=== PATIENT | female | born 1955 | race Caucasian/White ===

== ENCOUNTER 2017-05-14 07:51 | Day surgery (SDC) | payer OTHER ==
[2017-05-14] MEDS ORDERED: MIDAZOLAM INJ 2 MG/2 ML VIAL (J2250) As Ordered (08:59)
[2017-05-14] MEDS ORDERED: fentaNYL 100 MCG/2 ML INJECTION (J3010) As Ordered (08:59)
[2017-05-14] MEDS: TROPICAMIDE 1% OPHTH SOLN 2ML OD (09:04)
[2017-05-14] MEDS: PHENYLEPHRINE 2.5% OPHTH SOL 2ML OD (09:04)
[2017-05-14] MEDS: PROPARACAINE 0.5% OPHTH SOL 15ML OD (09:04)
[2017-05-14] MEDS: OFLOXACIN 0.3 % (OCUFLOX) OPTH SOL 5ML OD (09:04)
[2017-05-14] MEDS ORDERED: METOCLOPRAMIDE INJ 10MG/2ML VIAL (J2765) As Ordered (10:18)
[2017-05-14] MEDS ORDERED: ONDANSETRON 4MG/2ML VIAL (J2405) As Ordered (10:20)
[2017-05-14] MEDS: DUOVISC (0.50ML VISCOAT/0.55ML PROVISC) OPHTH KIT As Ordered (10:22)
[2017-05-14] MEDS: ACETYLCHOLINE OPHTH SOLN 1% 2ML (MIOCHOL-E) As Ordered (10:22)
[2017-05-14] MEDS: POVIDONE-IODINE 5% OPHTH PREP SOL 30ML As Ordered (10:22)
[2017-05-14] MEDS: LIDOCAINE 0.75%/EPINEPHRINE 0.025% IN BSS 1ML SYR INTRACAMERAL (OR ONLY) As Ordered (10:22)
[2017-05-14] MEDS: BALANCED SALT IRRIGATION SOLUTION 500ML BAG (FOR OR EYE MACHINE) As Ordered (10:22)
== END 2017-05-14 10:30 | disposition home or self-care (01) ==
LOC: M SDC 07:51
DX: H25.11 Age-related nuclear cataract, right eye (principal); I10 Essential (primary) hypertension; M10.9 Gout, unspecified; K21.9 Gastro-esophageal reflux disease without esophagitis; F32.9 Major depressive disorder, single episode, unspecified; G25.81 Restless legs syndrome; Z88.0 Allergy status to penicillin; Z88.2 Allergy status to sulfonamides; Z79.899 Other long term (current) drug therapy
CPT/HCPCS: 66984

== ENCOUNTER 2017-05-21 08:37 | Day surgery (SDC) | payer OTHER ==
[~2017-05-21 08:37] MED LIST: MIDAZOLAM INJ 2 MG/2 ML VIAL (J2250) As Ordered; fentaNYL 100 MCG/2 ML INJECTION (J3010) As Ordered
[2017-05-21] MEDS ORDERED: LIDOCAINE 1% MDV 20ML VIAL SQ (08:45)
[2017-05-21] MEDS: PROPARACAINE 0.5% OPHTH SOL 15ML OS (09:36)
[2017-05-21] MEDS: OFLOXACIN 0.3 % (OCUFLOX) OPTH SOL 5ML OS (09:37)
[2017-05-21] MEDS: TROPICAMIDE 1% OPHTH SOLN 2ML OS (09:38)
[2017-05-21] MEDS: PHENYLEPHRINE 2.5% OPHTH SOL 2ML OS (09:40)
[2017-05-21] MEDS: POVIDONE-IODINE 5% OPHTH PREP SOL 30ML As Ordered (10:32)
[2017-05-21] MEDS: BALANCED SALT IRRIGATION SOLUTION 500ML BAG (FOR OR EYE MACHINE) As Ordered (10:39)
[2017-05-21] MEDS: DUOVISC (0.50ML VISCOAT/0.55ML PROVISC) OPHTH KIT As Ordered ×2 (10:39→10:40)
[2017-05-21] MEDS: LIDOCAINE 0.75%/EPINEPHRINE 0.025% IN BSS 1ML SYR INTRACAMERAL (OR ONLY) As Ordered (10:40)
== END 2017-05-21 11:57 | disposition home or self-care (01) ==
LOC: M SDC 08:37
DX: H25.12 Age-related nuclear cataract, left eye (principal); I10 Essential (primary) hypertension; F33.1 Major depressive disorder, recurrent, moderate; F41.9 Anxiety disorder, unspecified; M54.16 Radiculopathy, lumbar region; M70.61 Trochanteric bursitis, right hip; J30.9 Allergic rhinitis, unspecified; M10.9 Gout, unspecified; R73.01 Impaired fasting glucose; E55.9 Vitamin D deficiency, unspecified; G25.81 Restless legs syndrome; E05.90 Thyrotoxicosis, unspecified without thyrotoxic crisis or storm; E78.5 Hyperlipidemia, unspecified; H60.399 Other infective otitis externa, unspecified ear; G47.00 Insomnia, unspecified; Z79.899 Other long term (current) drug therapy; Z88.0 Allergy status to penicillin; Z88.2 Allergy status to sulfonamides; Z88.5 Allergy status to narcotic agent; Z88.1 Allergy status to other antibiotic agents
CPT/HCPCS: 66984

== ENCOUNTER → 2018-05-25 | Outpatient (CLI) | payer OTHER ==
[~2018-05-25] MED LIST changes: +ALLO100T PO; +BYST5TAB2 PO; +CALC-196 PO; +CLON0.5T8 PO; +DULO1CAP3 PO; +GABA-1171 PO; +HYDR-3363 PO; +HYDR12CA PO; -MIDAZOLAM INJ 2 MG/2 ML VIAL (J2250) As Ordered; +MULT1TAB10 PO; +NAPR250T4 PO; +OMEP20CA3 PO; +REQU1TAB16 PO; +SING10TA32 PO; +TRAM50TA2 PO; +VALS160T PO; +VITA100067 PO; -fentaNYL 100 MCG/2 ML INJECTION (J3010) As Ordered
[2018-05-25 13:19] LABS: BLOOD UREA NITROGEN 20 MG/DL (7-18); CREATININE FOR GFR 0.72 MG/DL (0.55-1.30); GLOMERULAR FILTRATION RATE > 60.0 (>45)
== END ==
LOC: M WUC 09:59
PROVIDERS: ATTEND Neurological Surgery
DX: M51.36 Other intervertebral disc degeneration, lumbar region (principal)

== ENCOUNTER → 2018-11-07 | Outpatient (CLI) | payer OTHER ==
[~2018-11-07] MED LIST changes: -DULO1CAP3 PO; +DULO1CAP6 PO; -OMEP20CA3 PO; +OMEP20CA4 PO
[2018-11-07 11:40] LABS: HEMATOCRIT 43.5 % (36.0-47.0); HEMOGLOBIN 14.2 g/dl (12.0-15.5); MEAN CORPUSCULAR HEMOGLOBIN 29.1 pg (27.0-33.0); MEAN CORPUSCULAR HGB CONC 32.6 g/dl (32.0-36.5); MEAN CORPUSCULAR VOLUME 89.1 fl (80.0-96.0); PLATELET COUNT, AUTOMATED 277 10^3/uL (150-450); RED BLOOD COUNT 4.88 10^6/uL (4.00-5.40); WHITE BLOOD COUNT 11.1 10^3/uL (4.0-10.0)
[2018-11-07 11:58] LABS: HEMOGLOBIN A1c 6.1 %
[2018-11-07 12:06] LABS: ALBUMIN 3.7 GM/DL (3.2-5.2); ALT/SGPT 39 U/L (12-78); BILIRUBIN,TOTAL 0.5 MG/DL (0.2-1.0); BLOOD UREA NITROGEN 24 MG/DL (7-18); CALCIUM LEVEL 9.5 MG/DL (8.8-10.2); CARBON DIOXIDE LEVEL 29 MEQ/L (21-32); CHLORIDE LEVEL 107 MEQ/L (98-107); CHOLESTEROL LEVEL 199 MG/DL (<200); CHOLESTEROL RISK RATIO 2.487 (<5); CREATININE FOR GFR 0.71 MG/DL (0.55-1.30); FERRITIN 40 NG/ML (8-252); FREE T4 0.95 NG/DL (0.76-1.46); GLOMERULAR FILTRATION RATE > 60.0 (>45); GLUCOSE, FASTING 109 MG/DL (70-100); HDL CHOLESTEROL 80 MG/DL (>40); IRON (FE) 109 UG/DL (50-170); LDL CHOLESTEROL 97 MG/DL (<100); NON-HDL-C 119 MG/DL; PERCENT SATURATION 28.4 % (13.2-45.0); POTASSIUM SERUM 4.1 MEQ/L (3.5-5.1); SODIUM LEVEL 144 MEQ/L (136-145); THYROID STIMULATING HORMONE 0.507 uIU/ML (0.358-3.740); TOTAL IRON BINDING CAPACITY 384 UG/DL (250-450); TRIGLYCERIDES LEVEL 110 MG/DL (<150)
[2018-11-09 09:11] LABS: FOLATE > 24.0 NG/ML (>5.4); TOTAL 25(OH) VITAMIN D 48.9 NG/ML (30.0-100.0); VITAMIN B12 LEVEL 787 PG/ML (247-911)
== END ==
LOC: M WUC 09:10
PROVIDERS: ATTEND Registered Nurse
DX: E66.01 Morbid (severe) obesity due to excess calories (principal)

== ENCOUNTER → 2019-09-26 | Outpatient (CLI) | payer MEDICARE, OTHER ==
[~2019-09-26] MED LIST changes: +ALLE60TA69 PO; +ASPI81CH33 PO; +CALC500T68 PO; +CLON0.5T2 PO; -CLON0.5T8 PO; +CLON1TAB8 PO; +CVS5000S2 PO; +D31000TA2 PO; +DULO30CA47 PO; +FLUC150T PO; +LEVA750T7 PO; +METR-265 PO; +OMEP1CAP73 PO; -OMEP20CA4 PO; +PERCOCET PO; +REST0.05 OD; +REST0.05 OU; +ROPI1TAB3 PO; -VALS160T PO; +VALS160T2 PO; +VITA-172 PO; +VITMTA PO
--- NOTE | 2019-09-26 13:21 | REP ---
Clinical: Persistent cough. Technique: PA and lateral. Findings: Left lower lobe infiltrate compatible with acute pneumonia and small associated pleural effusion. Right hemithorax is clear. No pneumothorax. Mediastinum and cardiac silhouette normal. Skeletal structures intact. Impression: Left lower lobe consolidation compatible with pneumonia and associated small effusion. Electronically Signed by Kaden Lema MD 09/26/2019 01:13 P
== END ==
LOC: M LRY 12:43
PROVIDERS: ATTEND Physician Assistant
DX: R91.8 Other nonspecific abnormal finding of lung field (principal); R05 Cough
CPT/HCPCS: 71046; U0003

== ENCOUNTER → 2019-09-26 | Outpatient (REF) | payer MEDICARE, OTHER ==
[~2019-09-26] MED LIST changes: -ALLE60TA69 PO; -ASPI81CH33 PO; -CALC500T68 PO; -CLON1TAB8 PO; -CVS5000S2 PO; -D31000TA2 PO; -DULO30CA47 PO; -FLUC150T PO; -LEVA750T7 PO; -METR-265 PO; -PERCOCET PO; -REST0.05 OD; -REST0.05 OU; -ROPI1TAB3 PO; -VITA-172 PO; -VITMTA PO
== END ==
LOC: M SFHCLERA 13:52
PROVIDERS: ATTEND Physician Assistant
DX: R05 Cough (principal); Z11.59 Encounter for screening for other viral diseases

== ENCOUNTER 2019-10-12 17:10 | Inpatient (IN) | payer MEDICARE, OTHER ==
[~2019-10-12 17:10] MED LIST changes: +KETOROLAC 30 MG/ML 1ML VIAL ONE; +LIDOCAINE 1% MDV 20ML VIAL ONE; +MIDAZOLAM INJ 2MG/2ML VIAL (J2250 PER 1MG) ONE; +buPROPion 100 MG TAB ONE
[2019-10-12] MEDS ORDERED: ACETAMINOPHEN TAB 650MG DOSE (2X325MG) As Ordered ONE (19:37)
[2019-10-12] MEDS ORDERED: ACETAMINOPHEN TAB 650MG DOSE (2X325MG) ONE (19:37)
[2019-10-12] MEDS ORDERED: flumazeniL 0.5 MG/5 ML VIAL As Ordered ONE (20:48)
[2019-10-12] MEDS ORDERED: MIDAZOLAM INJ 2MG/2ML VIAL (J2250 PER 1MG) As Ordered ONE ×3 (20:50→21:49)
[2019-10-12] MEDS ORDERED: LIDOCAINE 1% MDV 20ML VIAL As Ordered ONE ×2 (20:52→21:52)
[2019-10-12] MEDS ORDERED: KETOROLAC 30 MG/ML 1ML VIAL As Ordered ONE (21:58)
[2019-10-13] MEDS ORDERED: VANCOMYCIN 1000MG/20ML VIAL ONE (01:24)
[2019-10-13] MEDS ORDERED: VANCOMYCIN 1000MG/20ML VIAL As Ordered ONE (01:24)
[2019-10-13] MEDS ORDERED: DULoxetine 30 MG CAP (CYMBALTA) As Ordered ONE ×3 (02:29→21:06)
[2019-10-13] MEDS ORDERED: DULoxetine 30 MG CAP (CYMBALTA) ONE ×3 (02:29→21:07)
[2019-10-13] MEDS ORDERED: GABAPENTIN 100 MG CAP ONE ×3 (02:29→21:07)
[2019-10-13] MEDS ORDERED: rOPINIRole 1MG TAB ONE ×2 (02:30→21:07)
[2019-10-13] MEDS ORDERED: HEPARIN SOD (PORCINE) 5000UNITS/ML 1ML VIAL/SYRINGE As Ordered ONE ×3 (02:30→21:07)
[2019-10-13] MEDS ORDERED: ZOSYN 3.375GM VIAL (J2543) ONE (02:30)
[2019-10-13] MEDS ORDERED: clonazePAM 0.5 MG TAB As Ordered ONE ×2 (02:30→21:07)
[2019-10-13] MEDS ORDERED: HEPARIN SOD (PORCINE) 5000UNITS/ML 1ML VIAL/SYRINGE ONE ×3 (02:30→21:07)
[2019-10-13] MEDS ORDERED: GABAPENTIN 100 MG CAP As Ordered ONE ×3 (02:30→21:06)
[2019-10-13] MEDS ORDERED: ZOSYN 3.375GM VIAL (J2543) As Ordered ONE (02:31)
[2019-10-13] MEDS ORDERED: rOPINIRole 1MG TAB As Ordered ONE ×2 (02:31→21:07)
[2019-10-13] MEDS ORDERED: KETOROLAC 30 MG/ML 1ML VIAL As Ordered ONE ×4 (06:10→23:32)
[2019-10-13] MEDS ORDERED: KETOROLAC 30 MG/ML 1ML VIAL ONE ×4 (06:10→23:32)
[2019-10-13] MEDS ORDERED: PANTOPRAZOLE 40MG VIAL (C9113 PER 1) ONE (08:07)
[2019-10-13] MEDS ORDERED: AZITHROMYCIN INJ 500MG VIAL (J0456 PER 500MG) ONE (08:07)
[2019-10-13] MEDS ORDERED: AZITHROMYCIN INJ 500MG VIAL (J0456 PER 500MG) As Ordered ONE (08:07)
[2019-10-13] MEDS ORDERED: PANTOPRAZOLE 40MG VIAL (C9113 PER 1) As Ordered ONE (08:08)
[2019-10-13] MEDS ORDERED: cefTRIAXone SOD 1GM VIAL (J0696 PER 250MG) ONE (09:50)
[2019-10-13] MEDS ORDERED: cefTRIAXone SOD 1GM VIAL (J0696 PER 250MG) As Ordered ONE (09:50)
[2019-10-13] MEDS ORDERED: MEROPENEM 1GM IN NACL 0.9% 50ML IVBAG (J2185 PER 100MG) As Ordered ONE ×2 (14:23→23:32)
[2019-10-13] MEDS ORDERED: MEROPENEM 1GM IN NACL 0.9% 50ML IVBAG (J2185 PER 100MG) ONE ×2 (14:23→23:32)
[2019-10-13] MEDS ORDERED: NEBIVOLOL 5 MG TAB (BYSTOLIC) ONE (19:00)
[2019-10-13] MEDS ORDERED: MONTELUKAST 10 MG TAB As Ordered ONE (21:06)
[2019-10-13] MEDS ORDERED: MONTELUKAST 10 MG TAB ONE (21:07)
[2019-10-13] MEDS ORDERED: clonazePAM 0.5 MG TAB ONE (21:07)
[2019-10-14] MEDS ORDERED: KETOROLAC 30 MG/ML 1ML VIAL ONE ×4 (05:38→23:29)
[2019-10-14] MEDS ORDERED: KETOROLAC 30 MG/ML 1ML VIAL As Ordered ONE ×4 (05:38→23:30)
[2019-10-14] MEDS ORDERED: MEROPENEM 1GM IN NACL 0.9% 50ML IVBAG (J2185 PER 100MG) As Ordered ONE ×3 (07:18→23:29)
[2019-10-14] MEDS ORDERED: MEROPENEM 1GM IN NACL 0.9% 50ML IVBAG (J2185 PER 100MG) ONE ×3 (07:18→23:29)
[2019-10-14] MEDS ORDERED: GABAPENTIN 100 MG CAP ONE ×2 (08:20→21:27)
[2019-10-14] MEDS ORDERED: DULoxetine 30 MG CAP (CYMBALTA) ONE ×2 (08:20→21:27)
[2019-10-14] MEDS ORDERED: HEPARIN SOD (PORCINE) 5000UNITS/ML 1ML VIAL/SYRINGE ONE ×2 (08:20→21:27)
[2019-10-14] MEDS ORDERED: DULoxetine 30 MG CAP (CYMBALTA) As Ordered ONE ×2 (08:20→21:27)
[2019-10-14] MEDS ORDERED: PANTOPRAZOLE 40MG VIAL (C9113 PER 1) ONE (08:20)
[2019-10-14] MEDS ORDERED: GABAPENTIN 100 MG CAP As Ordered ONE ×2 (08:20→21:27)
[2019-10-14] MEDS ORDERED: HEPARIN SOD (PORCINE) 5000UNITS/ML 1ML VIAL/SYRINGE As Ordered ONE ×2 (08:21→21:29)
[2019-10-14] MEDS ORDERED: PANTOPRAZOLE 40MG VIAL (C9113 PER 1) As Ordered ONE (08:21)
[2019-10-14] MEDS ORDERED: clonazePAM 0.5 MG TAB ONE (21:27)
[2019-10-14] MEDS ORDERED: MONTELUKAST 10 MG TAB ONE (21:27)
[2019-10-14] MEDS ORDERED: rOPINIRole 1MG TAB ONE (21:27)
[2019-10-14] MEDS ORDERED: MONTELUKAST 10 MG TAB As Ordered ONE (21:28)
[2019-10-14] MEDS ORDERED: rOPINIRole 1MG TAB As Ordered ONE (21:29)
[2019-10-14] MEDS ORDERED: clonazePAM 0.5 MG TAB As Ordered ONE (21:29)
[2019-10-15] MEDS ORDERED: KETOROLAC 30 MG/ML 1ML VIAL As Ordered ONE ×4 (05:18→23:32)
[2019-10-15] MEDS ORDERED: MEROPENEM 1GM IN NACL 0.9% 50ML IVBAG (J2185 PER 100MG) As Ordered ONE ×3 (05:53→23:31)
[2019-10-15] MEDS ORDERED: MEROPENEM 1GM IN NACL 0.9% 50ML IVBAG (J2185 PER 100MG) ONE ×3 (05:53→23:31)
[2019-10-15] MEDS ORDERED: KETOROLAC 30 MG/ML 1ML VIAL ONE ×4 (05:53→23:31)
[2019-10-15] MEDS ORDERED: DULoxetine 30 MG CAP (CYMBALTA) As Ordered ONE ×2 (09:44→21:43)
[2019-10-15] MEDS ORDERED: GABAPENTIN 100 MG CAP ONE ×2 (09:44→21:43)
[2019-10-15] MEDS ORDERED: HEPARIN SOD (PORCINE) 5000UNITS/ML 1ML VIAL/SYRINGE ONE ×2 (09:44→21:43)
[2019-10-15] MEDS ORDERED: PANTOPRAZOLE 40MG VIAL (C9113 PER 1) ONE (09:44)
[2019-10-15] MEDS ORDERED: DULoxetine 30 MG CAP (CYMBALTA) ONE ×2 (09:44→21:43)
[2019-10-15] MEDS ORDERED: GABAPENTIN 100 MG CAP As Ordered ONE ×2 (09:45→21:43)
[2019-10-15] MEDS ORDERED: PANTOPRAZOLE 40MG VIAL (C9113 PER 1) As Ordered ONE (09:45)
[2019-10-15] MEDS ORDERED: HEPARIN SOD (PORCINE) 5000UNITS/ML 1ML VIAL/SYRINGE As Ordered ONE ×2 (09:45→21:44)
[2019-10-15] MEDS ORDERED: PERCOCET 5MG/325MG TAB As Ordered ONE (10:07)
[2019-10-15] MEDS ORDERED: PERCOCET 5MG/325MG TAB ONE (10:07)
[2019-10-15] MEDS ORDERED: MONTELUKAST 10 MG TAB As Ordered ONE (21:43)
[2019-10-15] MEDS ORDERED: rOPINIRole 1MG TAB ONE (21:43)
[2019-10-15] MEDS ORDERED: MONTELUKAST 10 MG TAB ONE (21:43)
[2019-10-15] MEDS ORDERED: clonazePAM 0.5 MG TAB ONE (21:43)
[2019-10-15] MEDS ORDERED: clonazePAM 0.5 MG TAB As Ordered ONE (21:44)
[2019-10-15] MEDS ORDERED: rOPINIRole 1MG TAB As Ordered ONE (21:44)
[2019-10-16] MEDS ORDERED: MEROPENEM 1GM IN NACL 0.9% 50ML IVBAG (J2185 PER 100MG) ONE (06:19)
[2019-10-16] MEDS ORDERED: MEROPENEM 1GM IN NACL 0.9% 50ML IVBAG (J2185 PER 100MG) As Ordered ONE (06:19)
[2019-10-16] MEDS ORDERED: KETOROLAC 30 MG/ML 1ML VIAL ONE ×4 (06:19→23:28)
[2019-10-16] MEDS ORDERED: KETOROLAC 30 MG/ML 1ML VIAL As Ordered ONE ×4 (06:19→23:28)
[2019-10-16] MEDS ORDERED: GABAPENTIN 100 MG CAP As Ordered ONE ×2 (09:25→20:12)
[2019-10-16] MEDS ORDERED: DULoxetine 30 MG CAP (CYMBALTA) As Ordered ONE ×2 (09:25→20:12)
[2019-10-16] MEDS ORDERED: PANTOPRAZOLE 40MG VIAL (C9113 PER 1) As Ordered ONE (09:25)
[2019-10-16] MEDS ORDERED: PANTOPRAZOLE 40MG VIAL (C9113 PER 1) ONE (09:25)
[2019-10-16] MEDS ORDERED: HEPARIN SOD (PORCINE) 5000UNITS/ML 1ML VIAL/SYRINGE As Ordered ONE ×2 (09:25→20:13)
[2019-10-16] MEDS ORDERED: GABAPENTIN 100 MG CAP ONE ×2 (09:25→20:12)
[2019-10-16] MEDS ORDERED: DULoxetine 30 MG CAP (CYMBALTA) ONE ×2 (09:25→20:12)
[2019-10-16] MEDS ORDERED: HEPARIN SOD (PORCINE) 5000UNITS/ML 1ML VIAL/SYRINGE ONE ×2 (09:25→20:12)
[2019-10-16] MEDS ORDERED: PERCOCET 5MG/325MG TAB ONE (10:04)
[2019-10-16] MEDS ORDERED: PERCOCET 5MG/325MG TAB As Ordered ONE (10:04)
[2019-10-16] MEDS ORDERED: MOXIFLOXACIN 400 MG TAB As Ordered ONE (14:35)
[2019-10-16] MEDS ORDERED: MOXIFLOXACIN 400 MG TAB ONE (14:35)
[2019-10-16] MEDS ORDERED: MONTELUKAST 10 MG TAB ONE (20:12)
[2019-10-16] MEDS ORDERED: clonazePAM 0.5 MG TAB ONE (20:12)
[2019-10-16] MEDS ORDERED: rOPINIRole 1MG TAB ONE (20:12)
[2019-10-16] MEDS ORDERED: rOPINIRole 1MG TAB As Ordered ONE (20:13)
[2019-10-16] MEDS ORDERED: clonazePAM 0.5 MG TAB As Ordered ONE (20:13)
[2019-10-16] MEDS ORDERED: MONTELUKAST 10 MG TAB As Ordered ONE (20:13)
[2019-10-17] MEDS ORDERED: KETOROLAC 30 MG/ML 1ML VIAL ONE ×2 (05:40→11:47)
[2019-10-17] MEDS ORDERED: KETOROLAC 30 MG/ML 1ML VIAL As Ordered ONE ×2 (05:40→11:47)
[2019-10-17] MEDS ORDERED: HEPARIN SOD (PORCINE) 5000UNITS/ML 1ML VIAL/SYRINGE As Ordered ONE (09:11)
[2019-10-17] MEDS ORDERED: PANTOPRAZOLE 40MG VIAL (C9113 PER 1) ONE (09:11)
[2019-10-17] MEDS ORDERED: DULoxetine 30 MG CAP (CYMBALTA) As Ordered ONE (09:11)
[2019-10-17] MEDS ORDERED: HEPARIN SOD (PORCINE) 5000UNITS/ML 1ML VIAL/SYRINGE ONE (09:11)
[2019-10-17] MEDS ORDERED: DULoxetine 30 MG CAP (CYMBALTA) ONE (09:11)
[2019-10-17] MEDS ORDERED: GABAPENTIN 100 MG CAP ONE (09:11)
[2019-10-17] MEDS ORDERED: PANTOPRAZOLE 40MG VIAL (C9113 PER 1) As Ordered ONE (09:11)
[2019-10-17] MEDS ORDERED: GABAPENTIN 100 MG CAP As Ordered ONE (09:19)
--- NOTE | 2019-11-24 16:59 | ECGEPIP ---
SINUS TACHYCARDIA PRWP SEE SCANNED DOWNTIME REPORT MTDD
[2019-11-30 20:33] LABS: HEMATOCRIT 36.3 % (36.0-47.0); HEMOGLOBIN 11.6 g/dl (12.0-15.5); MEAN CORPUSCULAR VOLUME 92.6 fl (80.0-96.0); RED BLOOD COUNT 3.92 10^6/uL (4.00-5.40); WHITE BLOOD COUNT 11.1 10^3/uL (4.0-10.0)
[2019-11-30 20:34] LABS: BASO % 0.4 % (0.0-1.0); EOS # 0.3 10^3/uL (0.0-0.5); EOS % 2.9 % (0.0-3.0); LYMPH # 2.3 10^3/uL (1.5-5.0); LYMPH % 20.6 % (24.0-44.0); MEAN CORPUSCULAR HEMOGLOBIN 29.6 pg (27.0-33.0); MONO # 1.4 10^3/uL (0.0-0.8); MONO % 12.2 % (0.0-5.0); NEUTROPHILS % 63.1 % (36.0-66.0); PLATELET COUNT, AUTOMATED 310 10^3/uL (150-450)
[2019-12-01 03:25] LABS: INR 1.12; PARTIAL THROMBOPLASTIN TIME 33.7 SECONDS (24.2-38.5); PROTHROMBIN TIME 14.7 SECONDS (12.5-14.3)
[2019-12-01 03:34] LABS: BASO % 0.2 % (0.0-1.0); EOS % 0.1 % (0.0-3.0); HEMATOCRIT 41.1 % (36.0-47.0); HEMOGLOBIN 13.2 g/dl (12.0-15.5); LYMPH # 1.6 10^3/uL (1.5-5.0); LYMPH % 8.4 % (24.0-44.0); MEAN CORPUSCULAR HEMOGLOBIN 28.9 pg (27.0-33.0); MEAN CORPUSCULAR HGB CONC 32.1 g/dl (32.0-36.5); MEAN CORPUSCULAR VOLUME 90.1 fl (80.0-96.0); MONO # 1.6 10^3/uL (0.0-0.8); MONO % 8.6 % (0.0-5.0); NEUTROPHILS # 15.4 10^3/uL (1.5-8.5); NEUTROPHILS % 82.1 % (36.0-66.0); PLATELET COUNT, AUTOMATED 375 10^3/uL (150-450); RED BLOOD COUNT 4.56 10^6/uL (4.00-5.40); WHITE BLOOD COUNT 18.8 10^3/uL (4.0-10.0)
--- NOTE | 2019-12-01 12:42 | REP ---
PORTABLE CHEST X-RAY: SINGLE VIEW HISTORY: Left pleural effusion post chest tube. COMPARISON: Radiograph from 06:54 p.m. on this same date. This report is delayed due to a malware attack on this facility. FINDINGS: The left chest tube is seen in place at the base. There is improvement in aeration of the left lung with evacuation of much of the left pleural effusion. Some pleural thickening persists laterally on the left. Plate-like atelectasis is again seen in the right base also somewhat improved. There is no evidence of pneumothorax. Mediastinal shift is improved. There is mild dextroconvex curvature in the thoracic spine. Clips are noted in the right upper quadrant of the abdomen. MTDD
--- NOTE | 2019-12-02 08:18 | REP ---
PORTABLE CHEST X-RAY: SITTING AP VIEW. DATE: 10/12/2019 AT 6:54 p.m. COMPARISON STUDY: 09/26/2019. HISTORY: Effusion. FINDINGS: There is pleural opacity filling 2/3 of the left hemithorax. There is slight shift of the mediastinum to the right. There is meniscus blunting of the left lateral pleural angle. Findings are compatible with large left pleural effusion. There is some blunting of the left lateral pleural angle on the 09/26/2019 film. The finding is much increased. There plate-like atelectasis in the right base. IMPRESSION: Large left pleural effusion. MTDD
[2019-12-02 14:28] LABS: BASO # 0.1 10^3/uL (0.0-0.2); BASO % 0.5 % (0.0-1.0); EOS # 0.4 10^3/uL (0.0-0.5); HEMATOCRIT 35.1 % (36.0-47.0); LYMPH # 2.5 10^3/uL (1.5-5.0); LYMPH % 21.4 % (24.0-44.0); MEAN CORPUSCULAR HEMOGLOBIN 28.5 pg (27.0-33.0); MEAN CORPUSCULAR HGB CONC 31.3 g/dl (32.0-36.5); MEAN CORPUSCULAR VOLUME 90.9 fl (80.0-96.0); MONO # 1.5 10^3/uL (0.0-0.8); MONO % 12.7 % (0.0-5.0); NEUTROPHILS # 7.1 10^3/uL (1.5-8.5); NEUTROPHILS % 60.9 % (36.0-66.0); PLATELET COUNT, AUTOMATED 348 10^3/uL (150-450); RED BLOOD COUNT 3.86 10^6/uL (4.00-5.40); WHITE BLOOD COUNT 11.6 10^3/uL (4.0-10.0)
[2019-12-07 09:32] LABS: BASO # 0.1 10^3/uL (0.0-0.2); BASO % 0.3 % (0.0-1.0); EOS # 0.3 10^3/uL (0.0-0.5); HEMOGLOBIN 10.5 g/dl (12.0-15.5); LYMPH # 2.4 10^3/uL (1.5-5.0); LYMPH % 16.3 % (24.0-44.0); MEAN CORPUSCULAR HEMOGLOBIN 28.8 pg (27.0-33.0); MEAN CORPUSCULAR HGB CONC 31.8 g/dl (32.0-36.5); MEAN CORPUSCULAR VOLUME 90.4 fl (80.0-96.0); MONO # 1.7 10^3/uL (0.0-0.8); MONO % 11.7 % (0.0-5.0); NEUTROPHILS # 10.1 10^3/uL (1.5-8.5); NEUTROPHILS % 67.6 % (36.0-66.0); PLATELET COUNT, AUTOMATED 349 10^3/uL (150-450); RED BLOOD COUNT 3.65 10^6/uL (4.00-5.40); WHITE BLOOD COUNT 14.9 10^3/uL (4.0-10.0)
[2019-12-10 07:25] LABS: APPEARANCE, BODY FLUID CLEAR (CLEAR); PLEURAL FL COLOR YELLOW (COLORLESS); SOURCE, BODY FLUID PLEURAL
[2019-12-10 11:09] LABS: BASO % 0.2 % (0.0-1.0); EOS # 0.1 10^3/uL (0.0-0.5); EOS % 0.9 % (0.0-3.0); HEMATOCRIT 36.5 % (36.0-47.0); HEMOGLOBIN 11.4 g/dl (12.0-15.5); LYMPH % 12.5 % (24.0-44.0); MEAN CORPUSCULAR HEMOGLOBIN 28.6 pg (27.0-33.0); MEAN CORPUSCULAR HGB CONC 31.2 g/dl (32.0-36.5); MEAN CORPUSCULAR VOLUME 91.7 fl (80.0-96.0); MONO # 1.7 10^3/uL (0.0-0.8); MONO % 10.5 % (0.0-5.0); NEUTROPHILS # 12.1 10^3/uL (1.5-8.5); NEUTROPHILS % 75.2 % (36.0-66.0); PLATELET COUNT, AUTOMATED 317 10^3/uL (150-450); RED BLOOD COUNT 3.98 10^6/uL (4.00-5.40); WHITE BLOOD COUNT 16.1 10^3/uL (4.0-10.0)
[2019-12-29 10:08] LABS: LEGIONELLA ANTIGEN URINE SEE SEPARATE REPORT; URINE STREP PNEUMONIAE ANTIGEN SEE SEPARATE REPORT
[2020-01-02 10:03] LABS: BLOOD UREA NITROGEN 24 MG/DL (7-18); CALCIUM LEVEL 8.6 MG/DL (8.8-10.2); CARBON DIOXIDE LEVEL 32 MEQ/L (21-32); CHLORIDE LEVEL 110 MEQ/L (98-107); CREATININE FOR GFR 0.53 MG/DL (0.55-1.30); GLOMERULAR FILTRATION RATE > 60.0 (>45); GLUCOSE, FASTING 77 MG/DL (70-100); POTASSIUM SERUM 4.4 MEQ/L (3.5-5.1); SODIUM LEVEL 145 MEQ/L (136-145)
[2020-01-02 16:41] LABS: BLOOD UREA NITROGEN 24 MG/DL (7-18); CALCIUM LEVEL 8.5 MG/DL (8.8-10.2); CARBON DIOXIDE LEVEL 30 MEQ/L (21-32); CHLORIDE LEVEL 107 MEQ/L (98-107); GLOMERULAR FILTRATION RATE > 60.0 (>45); GLUCOSE, FASTING 90 MG/DL (70-100); LDH LACTATE DEHYDROGENASE 127 U/L (84-246); POTASSIUM SERUM 4.3 MEQ/L (3.5-5.1); SODIUM LEVEL 141 MEQ/L (136-145)
[2020-01-04 16:47] LABS: AMYLASE, BODY FLUID 27 U/L (NOT ESTABLISHED); CHOLESTEROL, BODY FLUID 101 MG/DL (NOT ESTABLISHED); LDH, BODY FLUID 956 U/L (NOT ESTABLISHED); SOURCE, BODY FLUID AMYLASE PLEURAL; SOURCE, BODY FLUID CHOL PLEURAL; SOURCE, BODY FLUID GLUCOSE PLEURAL; SOURCE, BODY FLUID LDH PLEURAL; SOURCE, BODY FLUID TOT PROTEIN PLEURAL; SOURCE, BODY FLUID TRIG PLEURAL; TOTAL PROTEIN, BODY FLUID 5.7 G/DL (NOT ESTABLISHED); TRIGLYCERIDE, BODY FLUID 37 MG/DL (NOT ESTABLISHED)
[2020-01-04 16:49] LABS: PH BODY FLUID 7.358 UNITS (NOT ESTABLISHED); SOURCE, BODY FLUID pH PLEURAL
[2020-01-04 20:33] LABS: ABG pH (ARTERIAL) 7.454 UNITS (7.350-7.450)
[2020-01-04 20:34] LABS: ABG BASE EXCESS 1.1 (-2.0-2.0); ABG HCO3 24.8 MEQ/L (22.0-26.0); ABG MODE OF VENT R/A; ABG O2 SATURATION 99.6 % (95.0-99.0); ABG PARTIAL PRESSURE CO2 36.1 mmHg (35.0-45.0); ABG PARTIAL PRESSURE O2 167.7 mmHg (75.0-100.0); ABG STANDARD HCO3 25.5 MEQ/L (22.0-26.0); ABG TOTAL CO2 25.9 MEQ/L (23.0-31.0)
[2020-01-06 14:25] LABS: ALBUMIN 2.9 GM/DL (3.2-5.2); ALT/SGPT 33 U/L (12-78); BILIRUBIN,TOTAL 0.5 MG/DL (0.2-1.0); BLOOD UREA NITROGEN 21 MG/DL (7-18); CALCIUM LEVEL 9.3 MG/DL (8.8-10.2); CARBON DIOXIDE LEVEL 32 MEQ/L (21-32); CHLORIDE LEVEL 104 MEQ/L (98-107); CREATININE FOR GFR 0.58 MG/DL (0.55-1.30); GLOMERULAR FILTRATION RATE > 60.0 (>45); GLUCOSE, FASTING 123 MG/DL (70-100); NT-PRO BNP 474 PG/ML (<125); POTASSIUM SERUM 4.3 MEQ/L (3.5-5.1); SODIUM LEVEL 139 MEQ/L (136-145); TOTAL PROTEIN 7.4 GM/DL (6.4-8.2)
[2020-01-09 20:35] LABS: BLOOD UREA NITROGEN 19 MG/DL (7-18); CALCIUM LEVEL 8.6 MG/DL (8.8-10.2); CARBON DIOXIDE LEVEL 32 mmol/L (20-29); CHLORIDE LEVEL 109 MEQ/L (98-107); CREATININE FOR GFR 0.49 MG/DL (0.55-1.30); GLOMERULAR FILTRATION RATE > 60.0 (>45); GLUCOSE, FASTING 87 MG/DL (70-100); POTASSIUM SERUM 4.4 MEQ/L (3.5-5.1); SODIUM LEVEL 142 MEQ/L (136-145)
[2020-01-09 23:12] LABS: BLOOD UREA NITROGEN 15 MG/DL (7-18); CALCIUM LEVEL 8.1 MG/DL (8.8-10.2); CARBON DIOXIDE LEVEL 29 MEQ/L (21-32); CHLORIDE LEVEL 109 MEQ/L (98-107); CREATININE FOR GFR 0.42 MG/DL (0.55-1.30); GLOMERULAR FILTRATION RATE > 60.0 (>45); GLUCOSE, FASTING 92 MG/DL (70-100); POTASSIUM SERUM 4.1 MEQ/L (3.5-5.1); SODIUM LEVEL 141 MEQ/L (136-145)
[2020-01-10 04:12] LABS: BLOOD UREA NITROGEN 16 MG/DL (7-18); CALCIUM LEVEL 8.2 MG/DL (8.8-10.2); CARBON DIOXIDE LEVEL 28 MEQ/L (21-32); CHLORIDE LEVEL 110 MEQ/L (98-107); CREATININE FOR GFR 0.42 MG/DL (0.55-1.30); GLOMERULAR FILTRATION RATE > 60.0 (>45); GLUCOSE, FASTING 91 MG/DL (70-100); POTASSIUM SERUM 4.2 MEQ/L (3.5-5.1); SODIUM LEVEL 143 MEQ/L (136-145)
--- NOTE | 2020-01-10 11:18 | REP ---
CHEST X-RAY: TWO VIEWS HISTORY: Follow-up chest tube placement. Report is delayed due to a malware attack on this facility. FINDINGS: Left chest tube remains in place at the left base. There is some left lateral pleural thickening again noted. There is no evidence of pneumothorax. Plate-like atelectasis is seen in the perihilar region on the left and to a lesser extent in the right base. Right lung is otherwise clear. Lumbar spine fusion hardware is noted in place. IMPRESSION: Improved left pleural effusion status post left chest tube placement. Bilateral plate-like atelectasis. MTDD
[2020-01-10 11:47] LABS: BASO # 0.1 10^3/uL (0.0-0.2); BASO % 0.6 % (0.0-1.0); EOS # 0.5 10^3/uL (0.0-0.5); EOS % 3.7 % (0.0-3.0); HEMATOCRIT 34.1 % (36.0-47.0); HEMOGLOBIN 10.9 g/dl (12.0-15.5); LYMPH # 2.7 10^3/uL (1.5-5.0); LYMPH % 20.5 % (24.0-44.0); MEAN CORPUSCULAR HEMOGLOBIN 28.8 pg (27.0-33.0); MEAN CORPUSCULAR VOLUME 90.2 fl (80.0-96.0); MONO # 1.7 10^3/uL (0.0-0.8); MONO % 13.1 % (0.0-5.0); NEUTROPHILS # 7.9 10^3/uL (1.5-8.5); NEUTROPHILS % 60.2 % (36.0-66.0); PLATELET COUNT, AUTOMATED 333 10^3/uL (150-450); RED BLOOD COUNT 3.78 10^6/uL (4.00-5.40); WHITE BLOOD COUNT 13.1 10^3/uL (4.0-10.0)
== END 2019-10-17 13:20 | disposition home or self-care (01) | DRG 177 ==
LOC: M ED 17:10 → M PCU 20:04
PROVIDERS: ADMIT Thoracic Surgery (Cardiothoracic Vascular Surgery); ATTEND Thoracic Surgery (Cardiothoracic Vascular Surgery)
DX: J86.9 Pyothorax without fistula (principal); J18.9 Pneumonia, unspecified organism; J69.0 Pneumonitis due to inhalation of food and vomit; I10 Essential (primary) hypertension; K21.9 Gastro-esophageal reflux disease without esophagitis; F32.9 Major depressive disorder, single episode, unspecified; G25.81 Restless legs syndrome; K57.30 Diverticulosis of large intestine without perforation or abscess without bleeding; Z88.0 Allergy status to penicillin; Z88.2 Allergy status to sulfonamides; Z88.1 Allergy status to other antibiotic agents; Z88.5 Allergy status to narcotic agent

== ENCOUNTER 2019-10-31 09:27 | Inpatient (IN) | payer MEDICARE, OTHER ==
[~2019-10-31] VITALS: Ht 154.9 cm; Wt 64.3 kg
[~2019-10-31 09:27] MED LIST changes: -ALLE60TA69 PO; -ASPI81CH33 PO; -CALC500T68 PO; -CLON1TAB8 PO; -CVS5000S2 PO; -D31000TA2 PO; -DULO30CA47 PO; -FLUC150T PO; -LEVA750T7 PO; -METR-265 PO; -PERCOCET PO; -REST0.05 OD; -REST0.05 OU; -ROPI1TAB3 PO; -VITA-172 PO; -VITMTA PO
[2019-10-31] MEDS ORDERED: CALC500T68 PO (10:00)
[2019-10-31] MEDS ORDERED: ASPI81CH33 PO (10:00)
[2019-10-31] MEDS ORDERED: CVS5000S2 PO (10:00)
[2019-10-31] MEDS ORDERED: ALLE60TA69 PO (10:00)
[2019-10-31] MEDS ORDERED: ISOVUE-370 76% 100ML VIAL As Ordered ONE (10:27)
[2019-10-31 11:05] LABS: BASO % 0.2 % (0.0-1.0); EOS % 0.2 % (0.0-3.0); HEMATOCRIT 32.2 % (36.0-47.0); HEMOGLOBIN 9.8 g/dl (12.0-15.5); LYMPH # 1.9 10^3/uL (1.5-5.0); LYMPH % 11.3 % (24.0-44.0); MEAN CORPUSCULAR HEMOGLOBIN 27.2 pg (27.0-33.0); MEAN CORPUSCULAR HGB CONC 30.4 g/dl (32.0-36.5); MEAN CORPUSCULAR VOLUME 89.4 fl (80.0-96.0); MONO # 2.2 10^3/uL (0.0-0.8); NEUTROPHILS # 12.3 10^3/uL (1.5-8.5); NEUTROPHILS % 74.2 % (36.0-66.0); PLATELET COUNT, AUTOMATED 616 10^3/uL (150-450); WHITE BLOOD COUNT 16.6 10^3/uL (4.0-10.0)
--- NOTE | 2019-10-31 11:08 | REPVR ---
PROCEDURE INFORMATION: Exam: CT Chest With Contrast Exam date and time: 10/31/2019 10:21 AM Age: 64 years old Clinical indication: Other: Consolidation on cxr TECHNIQUE: Imaging protocol: Computed tomography of the chest with intravenous contrast. 3D rendering (Not supervised by radiologist): MIP and/or 3D reconstructed images were created by the technologist. Radiation optimization: All CT scans at this facility use at least one of these dose optimization techniques: automated exposure control; mA and/or kV adjustment per patient size (includes targeted exams where dose is matched to clinical indication); or iterative reconstruction. Contrast material: ISOVUE 370; Contrast volume: 75 ml; Contrast route: INTRAVENOUS (IV); COMPARISON: 1. CR Chest, 2 view PA, Lat 10/31/2019 8:[address] Chest without contrast 10/13/2019 7:40:08 AM FINDINGS: Thyroid: Hypodense thyroid lesions, measuring up to 7 mm. These warrant no follow-up imaging. Lungs: Complete consolidation and volume loss of the left lower lobe. Left upper lobe compressive atelectasis. Pleural space: Large gas and fluid containing collection within the left posterior pleural space. This measures up to 12.3 cm x 6.3 cm transverse. Adjacent diffuse smooth left pleural thickening. Collection appears increased in size since the prior CT. Interval removal of the chest tube. Heart: Unremarkable. No cardiomegaly. No pericardial effusion. Aorta: Unremarkable. No aortic aneurysm. Lymph nodes: Mild left axillary lymphadenopathy, with lymph nodes measuring up to 10 mm in short axis dimension. Calcified mediastinal and right hilar lymph nodes are suggestive of prior granulomatous disease. Liver: Unremarkable. Gallbladder and bile ducts: Status post cholecystectomy. Abnormal distention of the intrahepatic and extrahepatic ducts. The extrahepatic duct measures up to approximately 17 mm in diameter. This appears unchanged. Pancreas: The main pancreatic duct measures up to 6 mm in diameter, within the head of the pancreas Adrenals: Mild left adrenal gland thickening. Stomach and bowel: Postsurgical change of the stomach. There is a small gas and fluid containing collection along the medial aspect of the spleen. This measures 3.6 by 1.7 cm. Collection abuts the left hemidiaphragm and may communicate with the left pleural space. Collection also abuts the proximal stomach. Collection appears minimally increased in size. Bones/joints: Right glenohumeral joint DJD. Degenerative change of the spine. Soft tissues: Unremarkable. IMPRESSION: 1. Large left-sided empyema, increased in size. This may communicate with a small gas and fluid containing collection along medial aspect of the spleen. This perisplenic collection appears minimally increased in size since the prior CT, and also abuts the proximal stomach. 2. Complete consolidation and volume loss of the left lower lobe, progressed since prior CT. 3. Mild left axillary lymphadenopathy. 4. Stable abnormal distention of the intrahepatic and extrahepatic ducts and the main pancreatic duct. Consider further evaluation with MRCP. COMMENTS: Consistent with the [employer]'s Incidental Findings Committee white paper (J Am Misty Radiol 2015): In patients aged 35 years and older with an incidental thyroid nodule equal to or greater than 1.[address], MRI or extrathyroidal US, further evaluation with dedicated thyroid US is recommended for patients with normal life expectancy and without comorbidities. For smaller nodules without suspicious features, no further evaluation or follow up is recommended. Electronically signed by: Linda Arreguin On 10/31/2019 11:09:13 AM
[2019-10-31] MEDS ORDERED: FLUC150T PO (12:12)
[2019-10-31] MEDS ORDERED: VITMTA PO (12:12)
[2019-10-31] MEDS ORDERED: DULO30CA47 PO (12:12)
[2019-10-31] MEDS ORDERED: D31000TA2 PO (12:12)
[2019-10-31] MEDS ORDERED: VITA-172 PO (12:12)
[2019-10-31] MEDS ORDERED: ROPI1TAB3 PO (12:12)
[2019-10-31] MEDS ORDERED: CLON1TAB8 PO (12:12)
[2019-10-31] MEDS ORDERED: REST0.05 OD (12:13)
[2019-10-31] MEDS ORDERED: REST0.05 OU (12:13)
[2019-10-31] MEDS ORDERED: KCL 20MEQ IN D5/NS 1000ML 1,000 ML IV SCH (12:25)
[2019-10-31] MEDS ORDERED: BISACODYL 10 MG SUPP PR PRN (12:30)
[2019-10-31] MEDS ORDERED: NORCO, ANEXSIA 5/325MG TABLET (HYDROcodone/ACETAMINOPHEN) PO PRN (12:30)
[2019-10-31] MEDS ORDERED: ONDANSETRON 4MG/2ML VIAL IV PRN (12:30)
[2019-10-31] MEDS ORDERED: PERCOCET 5MG/325MG TAB PO PRN (12:30)
[2019-10-31] MEDS ORDERED: LEVALBUTEROL 1.25 MG/0.5 ML CONCENTRATE NEB NEB PRN (12:30)
--- NOTE | 2019-10-31 12:36 | HPEPDOC ---
[facility] Medical History & Physical Date of Admission Oct 31, 2019 Date of Service: Oct 31, 2019 Attending Physician: SHEBA SEO MD History and Physical CHIEF COMPLAINT: Shortness of breath HISTORY OF PRESENT ILLNESS: 64 yo F with a hx of recurrent LLL effusion with empyema (most recently discharged from [facility] on 10/17/19), HNT, GERD, depression, RLS, who was referred to ED by Dr. Palacio from the thoracic surgery clinic due to worsening LLL empyema. She began to experience worsening shortness of breath for the past 5 days, worse on exertion. 2 days ago, she felt subjective fevers and pronounced chills which improved with ibuprofen. She denies chest pain, palpitations, hemoptysis or wheezing. She completed a follow up xray and was evaluated by Dr. Palacio in clinic today. She was subsequently refered to the ER. On arrival she was tachycardic, febrile and saturated to 94% on RA. WBC 16. CT chest w contrast showed a large LLL collection c/w empyema. L sided pigtail catheter was placed by Dr. Palacio and cultures were sent. PAST MEDICAL HISTORY: 1. HTN 2. GERD 3. Depression 4. RLS PAST SURGICAL HISTORY: 1. gastric sleeve 2. c section x 3. 3. cholecystectomy. 4. appendectomy 5. hysterectomy 6. cataracts SOCIAL HISTORY: Non smoker, occasional etoh use, no illicit drug use Independent with ADLS and IADLS FAMILY HISTORY: hx positive for emphysema, pancreatic cancer ALLERGIES: Please see below. REVIEW OF SYSTEMS: CONSTITUTIONAL: reports subjective fevers, chills HEENT: none. CARDIOVASCULAR: none. RESPIRATORY: shortness of breath on exertion. GASTROINTESTINAL: none. GENITOURINARY: none. SKIN: none. MUSCULOSKELETAL: none. NEUROLOGICAL: none. PSYCHIATRIC: none. ENDOCRINE: none. HEMATOLOGIC/LYMPHATIC: none. HOME MEDICATIONS: Please see below. PHYSICAL EXAMINATION: VITAL SIGNS: please see below GENERAL APPEARANCE: NAD, comfortable in bed. HEENT: PERRLA, no scleral incterus, no nystagum. CARDIOVASCULAR: RRR, normal S1, S2. LUNGS: reduced breath sounds on L, pigtail catheter in place, draining to pleur vac. Good inspiratory effort. R lung marte clear. No wheeze, no rales. ABDOMEN: soft, non tender. MUSCULOSKELETAL: normal ROM, no joint deformity. EXTREMITIES: no edema. Pulses 2++. NEUROLOGICAL: no focal neuro deficits. PSYCHIATRIC: calm, pleasant, cooperative. LABORATORY DATA: See below. IMAGING: CT chest with IV contrast (10/31/19) IMPRESSION: 1. Large left-sided empyema, increased in size. This may communicate with a small gas and fluid containing collection along medial aspect of the spleen. This perisplenic collection appears minimally increased in size since the prior CT, and also abuts the proximal stomach. 2. Complete consolidation and volume loss of the left lower lobe, progressed since prior CT. 3. Mild left axillary lymphadenopathy. 4. Stable abnormal distention of the intrahepatic and extrahepatic ducts and the main pancreatic duct. Consider further evaluation with MRCP. MICROBIOLOGY: Please see below. ASSESSMENT: Ms. Camarena is a pleasant 64 yo lady with a hx of HTN, depression, anxiety and recurrent LLL empyema 2/2 a pleural effusion. She was recently admitted for sepsis secondary to LLL empyema and was treated with chest tube placement and broad spectrum antibiotics. She is admitted today for recurrence of LLL empyema from Dr. Palacio's clinic. A pigtail catheter was placed, and is draining via pleurovac. . PLAN: 1. LLL empyema 2/2 recurrent pleural effusion: pigtail catheter placed by Dr. Palacio. Connected to pleurovac. Monitor daily CXR. Check CBC, CMP. Empiric abx therapy given penicillin allergy: vancomycin, metronidazole IV and levaquin IV. F/u cultures. Pain control norco, percocet. Tylenol prn for fevers. 2. HTN: home med 3. Depression: home med duloxetine. 4. Distension of hepatopancreatic ducts: found on CT. Check total and direct bili, transaminases. History of pancreatic cancer in brother (). Discussed with GI (Dr. Tamayo), ordered MRI abdomen with pancreatic protocol. DVT ppx: heparin 5000 units SC q12h Abx: Vancomycin 10/31/19 - Metronidazole 10/31/19 - Levaquin 10/31/19 - Vital Signs Vital Signs Date Time Temp Pulse Resp B/P (MAP) Pulse Ox O2 Delivery O2 Flow Rate FiO2 10/31/19 09:51 10/31/19 09:51 Room Air 10/31/19 09:27 98.6 99 26 98 Laboratory Data Labs 24H Laboratory Tests 2 10/31/19 10:15: Immature Granulocyte % (Auto) 1.1, Neutrophils (%) (Auto) 74.2H, Lymphocytes (%) (Auto) 11.3L, Monocytes (%) (Auto) 13.0H, Eosinophils (%) (Auto) 0.2, Basophils (%) (Auto) 0.2, Neutrophils # (Auto) 12.3H, Lymphocytes # (Auto) 1.9, Monocytes # (Auto) 2.2H, Eosinophils # (Auto) 0.0, Basophils # (Auto) 0.0, Nucleated Red Blood Cells % (auto) 0.0 10/31/19 11:19: CBC/BMP Laboratory Tests 10/31/19 10:15 Microbiology Microbiology 10/31/19 Blood Culture, Received Pending 10/31/19 Blood Culture, Received Pending Home Medications Scheduled Aspirin (Aspirin) 81 Mg Tab.chew, 81 MG PO DAILY Calcium Carbonate (Calcium) 500 Mg Tab.chew, 500 MG PO DAILY Cholecalciferol (Vitamin D3) (Vitamin D3) 1,000 Unit Tablet, 2,000 UNITS PO DAILY Clonazepam (Clonazepam) 1 Mg Tablet, 0.5 MG PO QHS Cyanocobalamin (Vitamin B-12) (Vitamin B-12) 500 Mcg Tablet, 500 MCG PO DAILY Cyclosporine (Restasis) 0.05% Droperette, 1 DROP OD BID Cyclosporine (Restasis) 0.05% Droperette, 1 DROP OU BID Duloxetine HCl (Duloxetine HCl) 30 Mg Capsule.dr, 60 MG PO DAILY Fluconazole (Fluconazole) 150 Mg Tablet, 150 MG PO ASDIRECTED X2 DOSES, LAST DOSE DUE 10/31/19 Gabapentin (Gabapentin) 100 Mg Cap, 100 MG PO BID Hydroxyzine HCl (Hydroxyzine HCl) 25 Mg Tab, 25 MG PO QHS Montelukast Sodium (Singulair) 10 Mg Tab, 10 MG PO QHS Multivitamins (Thera M Plus Tablet) 1 Each Tablet, 1 TAB PO DAILY Nebivolol HCl (Bystolic) 5 Mg Tab, 2.5 MG PO DAILY Omeprazole (Omeprazole) 20 Mg Cap, 20 MG PO BID Ropinirole HCl (Ropinirole HCl) 1 Mg Tablet, 2 MG PO QHS Scheduled PRN Fexofenadine HCl (Iris Allergy) 60 Mg Tablet, 60 MG PO DAILY PRN for allergies Naproxen (Naproxen) 250 Mg Tab, 250 MG PO BID PRN for PAIN Tramadol HCl (Tramadol HCl) 50 Mg Tab, 50 MG PO BID PRN for PAIN Allergies Coded Allergies: Penicillins (Verified Allergy, Severe, throat closes, 10/31/19) morphine (Verified Allergy, Severe, stops breathing, 10/31/19) Sulfa (Sulfonamide Antibiotics) (Verified Allergy, Intermediate, 10/31/19) erythromycin base (Verified Allergy, Intermediate, 10/31/19) aspartame (Verified Allergy, Unknown, 10/31/19) tizanidine (Verified Allergy, Unknown, 10/31/19) A-FIB/CHADSVASC A-FIB History Current/History of A-Fib/PAF?: No Current PO Anticoag Therapy: No SHEBA SEO MD Oct 31, 2019 12:36
[2019-10-31 14:45] VITALS: BP 140/72
[2019-10-31] MEDS: ACETAMINOPHEN TAB 650MG DOSE (2X325MG) PO PRN (14:59)
[2019-10-31] MEDS ORDERED: PIPERACILLIN/TAZOBACTAM SOD 4.5 GM in D5W MINI-BAG PLUS 50 ML IV SCH (15:45)
[2019-10-31 16:00] VITALS: BP 128/73
[2019-10-31] MEDS ORDERED: traMADol 50 MG TAB PO PRN (16:00)
[2019-10-31] MEDS: KETOROLAC 30 MG/ML 1ML VIAL IV SCH ×2 (17:30→23:30)
[2019-10-31] MEDS: metroNIDAZOLE 500 MG in IV 1 EA IV SCH (17:30)
[2019-10-31] MEDS: LEVALBUTEROL 1.25 MG/0.5 ML CONCENTRATE NEB NEB SCH ×2 (17:38→19:40)
[2019-10-31 18:08] LABS: ABG BASE EXCESS 1.8 (-2.0-2.0); ABG HCO3 24.6 MEQ/L (22.0-26.0); ABG O2 SATURATION 94.7 % (95.0-99.0); ABG PARTIAL PRESSURE CO2 32.3 mmHg (35.0-45.0); ABG PARTIAL PRESSURE O2 71.3 mmHg (75.0-100.0); ABG TOTAL CO2 25.6 MEQ/L (23.0-31.0)
[2019-10-31] MEDS ORDERED: LevoFLOXacin IV 750 MG in IV 1 EA IV SCH (19:00)
[2019-10-31 20:00] VITALS: BP 92/46
[2019-10-31] MEDS ORDERED: OMEPRAZOLE 20 MG CAP PO SCH (21:00)
[2019-10-31] MEDS ORDERED: VANCOMYCIN HCL 1,000 MG, VIAL MATE ADAPTER 1 EACH in D5W 250 ML IV ONE (21:00)
[2019-10-31] MEDS: DOCUSATE SODIUM 100 MG CAP PO SCH (21:00)
[2019-10-31] MEDS: clonazePAM 0.5 MG TAB PO SCH (21:00)
[2019-10-31] MEDS ORDERED: SODIUM CHLORIDE 0.9% 1000ML IV ONE ×2 (21:30→22:00)
[2019-10-31] MEDS: rOPINIRole 1MG TAB PO SCH (21:44)
[2019-10-31] MEDS: MONTELUKAST 10 MG TAB PO SCH (21:44)
[2019-10-31] MEDS: GABAPENTIN 100 MG CAP PO SCH (21:44)
[2019-10-31] MEDS: HEPARIN SOD (PORCINE) 5000UNITS/ML 1ML VIAL/SYRINGE SC SCH (21:44)
[2019-10-31 21:55] LABS: APPEARANCE, BODY FLUID TURBID (CLEAR); PLEURAL FL COLOR GREEN (COLORLESS); SOURCE, BODY FLUID PLEURAL
[2019-10-31 21:56] LABS: SOURCE, BODY FLUID AMYLASE PLEURAL; SOURCE, BODY FLUID CHOL PLEURAL; SOURCE, BODY FLUID GLUCOSE PLEURAL; SOURCE, BODY FLUID LDH PLEURAL; SOURCE, BODY FLUID TRIG PLEURAL; SOURCE, BODY FLUID pH PLEURAL
[2019-10-31 21:59] LABS: SOURCE, BODY FLUID ALBUMIN PLEURAL; SOURCE, BODY FLUID TOT PROTEIN PLEURAL
[2019-10-31 22:16] LABS: BLOOD UREA NITROGEN 17 MG/DL (7-18); CALCIUM LEVEL 8.7 MG/DL (8.8-10.2); CARBON DIOXIDE LEVEL 29 MEQ/L (21-32); CHLORIDE LEVEL 104 MEQ/L (98-107); CREATININE FOR GFR 0.57 MG/DL (0.55-1.30); GLOMERULAR FILTRATION RATE > 60.0 (>45); GLUCOSE, FASTING 131 MG/DL (70-100); POTASSIUM SERUM 3.6 MEQ/L (3.5-5.1); SODIUM LEVEL 139 MEQ/L (136-145)
[2019-11-01] VITALS: BP 108/56
[2019-11-01] MEDS: metroNIDAZOLE 500 MG in IV 1 EA IV SCH ×3 (00:05→16:56)
[2019-11-01] MEDS: LEVALBUTEROL 1.25 MG/0.5 ML CONCENTRATE NEB NEB SCH ×4 (01:52→19:49)
[2019-11-01 04:00] VITALS: BP 109/55
[2019-11-01] MEDS: KETOROLAC 30 MG/ML 1ML VIAL IV SCH ×4 (04:24→21:00)
[2019-11-01 06:20] LABS: BASO # 0.1 10^3/uL (0.0-0.2); BASO % 0.4 % (0.0-1.0); EOS # 0.2 10^3/uL (0.0-0.5); EOS % 1.9 % (0.0-3.0); HEMATOCRIT 28.7 % (36.0-47.0); HEMOGLOBIN 9.1 g/dl (12.0-15.5); LYMPH # 1.9 10^3/uL (1.5-5.0); LYMPH % 15.1 % (24.0-44.0); MEAN CORPUSCULAR HEMOGLOBIN 28.2 pg (27.0-33.0); MEAN CORPUSCULAR HGB CONC 31.7 g/dl (32.0-36.5); MEAN CORPUSCULAR VOLUME 88.9 fl (80.0-96.0); MONO # 1.2 10^3/uL (0.0-0.8); MONO % 9.8 % (0.0-5.0); NEUTROPHILS # 8.9 10^3/uL (1.5-8.5); NEUTROPHILS % 71.6 % (36.0-66.0); PLATELET COUNT, AUTOMATED 518 10^3/uL (150-450); RED BLOOD COUNT 3.23 10^6/uL (4.00-5.40); WHITE BLOOD COUNT 12.4 10^3/uL (4.0-10.0)
[2019-11-01 06:44] LABS: BLOOD UREA NITROGEN 16 MG/DL (7-18); CALCIUM LEVEL 8.6 MG/DL (8.8-10.2); CARBON DIOXIDE LEVEL 27 MEQ/L (21-32); CHLORIDE LEVEL 106 MEQ/L (98-107); CREATININE FOR GFR 0.48 MG/DL (0.55-1.30); GLOMERULAR FILTRATION RATE > 60.0 (>45); GLUCOSE, FASTING 85 MG/DL (70-100); POTASSIUM SERUM 3.6 MEQ/L (3.5-5.1); SODIUM LEVEL 141 MEQ/L (136-145)
[2019-11-01 08:00] VITALS: BP 120/58
[2019-11-01] MEDS: HEPARIN SOD (PORCINE) 5000UNITS/ML 1ML VIAL/SYRINGE SC SCH ×2 (08:43→21:00)
[2019-11-01] MEDS: ASPIRIN 81 MG CHEW TABLET PO SCH (08:43)
[2019-11-01] MEDS: DULoxetine 30 MG CAP (CYMBALTA) PO SCH (08:43)
[2019-11-01] MEDS: GABAPENTIN 100 MG CAP PO SCH ×2 (08:43→20:59)
[2019-11-01] MEDS: PANTOPRAZOLE 40MG TAB (PROTONIX) PO SCH (08:44)
[2019-11-01] MEDS: NEBIVOLOL 5 MG TAB (BYSTOLIC) PO SCH (08:44)
[2019-11-01] MEDS: MOM 30ML SUSPENSION UDC PO SCH (08:45)
[2019-11-01] MEDS: DOCUSATE SODIUM 100 MG CAP PO SCH ×2 (08:45→20:59)
[2019-11-01] MEDS: VANCOMYCIN HCL 1,000 MG, VIAL MATE ADAPTER 1 EACH in D5W 250 ML IV SCH ×2 (10:14→21:00)
[2019-11-01 12:00] VITALS: BP 146/72
--- NOTE | 2019-11-01 12:51 | IPNPDOC ---
Subjective Date Seen The patient was seen on 11/01/19. Subjective Chief Complaint/HPI pt is comfortable, offers no complaints General: Denies: ROS Unobtainable, Chills, Night Sweats, Fatigue, Malaise, Normal Appetite, Other Symptoms Constitutional: Denies: Chills, Fever, Malaise, Night Sweats, Weakness, Fatigue, Weight Loss, Lethargy, Other Eyes: Denies: Pain, Vision change, Conjunctivae inflammation, Eyelid inflammation, Redness, Other ENT: Denies: Head Aches, Ear Pain, Dysphagia, Sinus Congestion, Post Nasal Drip, Sore Throat, Epistaxis, Other Symptoms Skin: Denies: Rash, Lesions, Jaundice, Bruising, Itching, Dry, Breakdown, Nail Changes, Other Pulmonary: Denies: Dyspnea, Cough, Pleuritic Chest Pain, Other Symptoms Cardiovascular: Denies: Chest Pain, Palpitations, Orthopnea, Paroxysmal Noc. Dyspnea, Edema, Lt Headedness, Other Symptoms Gastrointestinal: Denies: Nausea, Vomiting, Abdominal Pain, Diarrhea, Constipation, Melena, Hematochezia, Other Symptoms Musculoskeletal: Denies: Neck Pain, Back Pain, Shoulder Pain, Arm Pain, Hand Pain, Leg Pain, Foot Pain, Joint Pain, Muscle Pain, Spasms, Other Symptoms Neurological: Denies: Weakness, Numbness, Incoordination, Change in speech, Confusion, Seizures, Other Symptoms Psych: Denies: Mood Normal, Anxiety, Depression, Memory Issues, Thoughts of Self Harm, Anger, Thoughts of Harming Other, Other Psych Objective Physical Examination General Exam: Positive: Alert, Cooperative Eye Exam: Positive: PERRLA, Conjunctiva & lids normal ENT Exam: Positive: Atraumatic Neck Exam: Positive: Supple Chest Exam: Positive: Clear to auscultation, Normal air movement, Other (Chest tube in place and draining) Heart Exam: Positive: Rate Normal, Normal S1, Normal S2 Abdomen Exam: Positive: Normal bowel sounds Skin Exam: Positive: Nl turgor and temperature Neuro Exam: Positive: Strength at 5/5 X4 ext, Cranial Nerves 3-12 NL Assessment /Plan Problems (1) Empyema, left Status: Acute (2) Pleural effusion Status: Chronic Plan/VTE VTE Prophylaxis Ordered?: Yes Plan ASSESSMENT: Ms. Camarena is a pleasant 64 yo lady with a hx of HTN, depression, anxiety and recurrent LLL empyema 2/2 a pleural effusion. She was recently admitted for sepsis secondary to LLL empyema and was treated with chest tube placement and broad spectrum antibiotics. She was admitted yesterday for recurrence of LLL empyema from Dr. Palacio's clinic. A pigtail catheter was placed, and is draining via pleurovac. . PLAN: 1. LLL empyema 2/2 recurrent pleural effusion: pigtail catheter placed by Dr. Palacio. Connected to pleurovac. Monitor daily CXR. Check CBC, CMP. Empiric abx therapy given penicillin allergy: vancomycin, metronidazole IV and levaquin IV. F/u cultures. Pain control norco, percocet. Tylenol prn for fevers. Further recommendations as per Dr Palacio 2. HTN: under control with home meds 3. Depression: Continue home med duloxetine. 4. Distension of hepatopancreatic ducts: found on CT. Check total and direct bili, transaminases. History of pancreatic cancer in brother (). Discussed with GI (Dr. Tamayo), ordered MRI abdomen with pancreatic protocol. VS, I&O, 24H, Fishbone Vital Signs/I&O Vital Signs Date Time Temp Pulse Resp B/P (MAP) Pulse Ox O2 Delivery O2 Flow Rate FiO2 11/01/19 12:00 146/72 (96) Room Air 11/01/19 08:44 77 11/01/19 08:00 97.7 18 96 I&O- Last 24 Hours up to 6 AM 11/01/19 06:00 Intake Total 300 ml Output Total 910 ml Balance -610 ml Laboratory Data 24H LABS Laboratory Tests 2 10/31/19 17:50: Blood Gas Bicarbonate Standard 26.0, Arterial Blood pH 7.500H, Arterial Blood Partial Pressure CO2 32.3L, Arterial Blood Partial Pressure O2 71.3L, Arterial B lood Total CO2 25.6, Arterial Blood HCO3 24.6, Arterial Blood Base Excess 1.8, Arterial Blood Oxygen Saturation 94.7L 10/31/19 21:35: Anion Gap 6L, Glomerular Filtration Rate > 60.0, Calcium Level 8.7L 11/01/19 05:26: Anion Gap 8, Glomerular Filtration Rate > 60.0, Calcium Level 8.6L, Immature Granulocyte % (Auto) 1.2, Neutrophils (%) (Auto) 71.6H, Lymphocytes (%) (Auto) 15.1L, Monocytes (%) (Auto) 9.8H, Eosinophils (%) (Auto) 1.9, Basophils (%) (Auto) 0.4, Neutrophils # (Auto) 8.9H, Lymphocytes # (Auto) 1.9, Monocytes # (Auto) 1.2H, Eosinophils # (Auto) 0.2, Basophils # (Auto) 0.1, Nucleated Red Blood Cells % (auto) 0.0 CBC/BMP Laboratory Tests 10/31/19 21:35 11/01/19 05:26 Microbiology Microbiology 10/31/19 Acid Fast Stain, Received Pending 10/31/19 Mycobacterial Culture, Received Pending 10/31/19 Fungal Smear, Received Pending 10/31/19 Fungal Culture, Received Pending 10/31/19 Gram Stain - Final, Resulted 10/31/19 Anaerobic Culture, Resulted Pending 10/31/19 Body Fluid Culture, Received Pending 10/31/19 Blood Culture - Preliminary, Resulted No growth after 24 hours . All specim... 10/31/19 Blood Culture - Preliminary, Resulted No growth after 24 hours . All specim... SELENE AUGUSTIN MD Nov 01, 2019 12:51
[2019-11-01 14:38] LABS: HEMATOCRIT 30.7 % (36.0-47.0); HEMOGLOBIN 9.7 g/dl (12.0-15.5); MEAN CORPUSCULAR HGB CONC 31.6 g/dl (32.0-36.5); MEAN CORPUSCULAR VOLUME 88.5 fl (80.0-96.0); PLATELET COUNT, AUTOMATED 569 10^3/uL (150-450); RED BLOOD COUNT 3.47 10^6/uL (4.00-5.40); WHITE BLOOD COUNT 12.8 10^3/uL (4.0-10.0)
[2019-11-01 15:07] LABS: BLOOD UREA NITROGEN 20 MG/DL (7-18); CALCIUM LEVEL 8.5 MG/DL (8.8-10.2); CARBON DIOXIDE LEVEL 26 MEQ/L (21-32); CHLORIDE LEVEL 108 MEQ/L (98-107); CREATININE FOR GFR 0.55 MG/DL (0.55-1.30); GLOMERULAR FILTRATION RATE > 60.0 (>45); GLUCOSE, FASTING 155 MG/DL (70-100); POTASSIUM SERUM 3.4 MEQ/L (3.5-5.1); SODIUM LEVEL 141 MEQ/L (136-145)
[2019-11-01 16:00] VITALS: BP 128/61
[2019-11-01 20:00] VITALS: BP 119/63
[2019-11-01] MEDS: rOPINIRole 1MG TAB PO SCH (20:59)
[2019-11-01] MEDS: clonazePAM 0.5 MG TAB PO SCH (20:59)
[2019-11-01] MEDS: MONTELUKAST 10 MG TAB PO SCH (20:59)
[2019-11-01] MEDS ORDERED: VANCOMYCIN HCL 1,000 MG, VIAL MATE ADAPTER 1 EACH in D5W 250 ML IV SCH (21:00)
[2019-11-02] VITALS: BP 135/70
[2019-11-02] MEDS: metroNIDAZOLE 500 MG in IV 1 EA IV SCH ×3 (01:32→17:26)
[2019-11-02] MEDS: LEVALBUTEROL 1.25 MG/0.5 ML CONCENTRATE NEB NEB SCH ×4 (01:36→20:23)
[2019-11-02 04:00] VITALS: BP 149/78
[2019-11-02] MEDS: KETOROLAC 30 MG/ML 1ML VIAL IV SCH ×4 (04:51→22:09)
[2019-11-02 06:10] LABS: BASO # 0.1 10^3/uL (0.0-0.2); BASO % 0.5 % (0.0-1.0); EOS # 0.4 10^3/uL (0.0-0.5); EOS % 4.3 % (0.0-3.0); HEMATOCRIT 31.7 % (36.0-47.0); HEMOGLOBIN 9.8 g/dl (12.0-15.5); LYMPH # 2.1 10^3/uL (1.5-5.0); LYMPH % 22.1 % (24.0-44.0); MEAN CORPUSCULAR HEMOGLOBIN 27.3 pg (27.0-33.0); MEAN CORPUSCULAR HGB CONC 30.9 g/dl (32.0-36.5); MEAN CORPUSCULAR VOLUME 88.3 fl (80.0-96.0); MONO % 10.8 % (0.0-5.0); NEUTROPHILS # 5.8 10^3/uL (1.5-8.5); NEUTROPHILS % 60.3 % (36.0-66.0); PLATELET COUNT, AUTOMATED 538 10^3/uL (150-450); RED BLOOD COUNT 3.59 10^6/uL (4.00-5.40); WHITE BLOOD COUNT 9.6 10^3/uL (4.0-10.0)
[2019-11-02 06:31] LABS: BLOOD UREA NITROGEN 13 MG/DL (7-18); CALCIUM LEVEL 8.6 MG/DL (8.8-10.2); CARBON DIOXIDE LEVEL 28 MEQ/L (21-32); CHLORIDE LEVEL 109 MEQ/L (98-107); CREATININE FOR GFR 0.44 MG/DL (0.55-1.30); GLOMERULAR FILTRATION RATE > 60.0 (>45); GLUCOSE, FASTING 90 MG/DL (70-100); POTASSIUM SERUM 3.7 MEQ/L (3.5-5.1); SODIUM LEVEL 143 MEQ/L (136-145)
[2019-11-02 08:00] VITALS: BP 135/75
[2019-11-02] MEDS: DOCUSATE SODIUM 100 MG CAP PO SCH ×2 (09:00→21:00)
[2019-11-02] MEDS: MOM 30ML SUSPENSION UDC PO SCH (09:00)
[2019-11-02] MEDS: PANTOPRAZOLE 40MG TAB (PROTONIX) PO SCH (09:06)
[2019-11-02] MEDS: ASPIRIN 81 MG CHEW TABLET PO SCH (09:06)
[2019-11-02] MEDS: DULoxetine 30 MG CAP (CYMBALTA) PO SCH (09:07)
[2019-11-02] MEDS: GABAPENTIN 100 MG CAP PO SCH ×2 (09:08→20:05)
[2019-11-02] MEDS: HEPARIN SOD (PORCINE) 5000UNITS/ML 1ML VIAL/SYRINGE SC SCH ×2 (09:08→20:05)
[2019-11-02] MEDS: NEBIVOLOL 5 MG TAB (BYSTOLIC) PO SCH (09:08)
[2019-11-02] MEDS: VANCOMYCIN HCL 1,000 MG, VIAL MATE ADAPTER 1 EACH in D5W 250 ML IV SCH ×2 (09:09→22:09)
--- NOTE | 2019-11-02 09:16 | REPVR ---
PROCEDURE INFORMATION: Exam: XR Chest, 2 Views Exam date and time: 11/02/19 (8:40am) Age: 64 years old Clinical indication: Pleural effusion TECHNIQUE: Imaging protocol: XR of the chest Views: 2 views COMPARISON: Chest films of 11/01/19 (7:49am) FINDINGS: Comparison is made with chest films done the previous morning. Stable heart size. Opacification again seen in the mid and lower left hemithorax -- probable residual loculated left pleural effusion and some LLL parenchymal disease. A pigtail drainage catheter is again seen, projecting posteriorly in the left lower hemithorax. The left upper lung zone and the right lung remain clear. Spinal hardware seen in the upper abdomen, right of midline. Previous cholecystectomy. IMPRESSION: In general, no significant interval change is noted over the past 25 hours. Left-sided pigtail drainage catheter remains in place (stable position). Opacity again seen in the left mid and lower lung zones -- pleural and parenchymal disease is present. Some loculated left pleural effusion, laterally located, remains. See additional comments above. Electronically signed by: Nya Green On 11/02/2019 09:16:47 AM
--- NOTE | 2019-11-02 11:02 | IPNPDOC ---
Subjective Date Seen The patient was seen on 11/02/19. Subjective Chief Complaint/HPI offers no new complaints General: Denies: ROS Unobtainable, Chills, Night Sweats, Fatigue, Malaise, Normal Appetite, Other Symptoms Constitutional: Denies: Chills, Fever, Malaise, Night Sweats, Weakness, Fatigue, Weight Loss, Lethargy, Other Pulmonary: Denies: Dyspnea, Cough, Pleuritic Chest Pain, Other Symptoms Cardiovascular: Denies: Chest Pain, Palpitations, Orthopnea, Paroxysmal Noc. Dyspnea, Edema, Lt Headedness, Other Symptoms Gastrointestinal: Denies: Nausea, Vomiting, Abdominal Pain, Diarrhea, Constipation, Melena, Hematochezia, Other Symptoms Musculoskeletal: Denies: Neck Pain, Back Pain, Shoulder Pain, Arm Pain, Hand Pain, Leg Pain, Foot Pain, Joint Pain, Muscle Pain, Spasms, Other Symptoms Neurological: Denies: Weakness, Numbness, Incoordination, Change in speech, Confusion, Seizures, Other Symptoms Psych: Denies: Mood Normal, Anxiety, Depression, Memory Issues, Thoughts of Self Harm, Anger, Thoughts of Harming Other, Other Psych Objective Physical Examination General Exam: Positive: Alert, Cooperative Eye Exam: Positive: PERRLA, Conjunctiva & lids normal ENT Exam: Positive: Atraumatic Neck Exam: Positive: Supple Chest Exam: Positive: Clear to auscultation, Normal air movement, Other (Chest tube in place and draining) Heart Exam: Positive: Rate Normal, Normal S1, Normal S2 Abdomen Exam: Positive: Normal bowel sounds Skin Exam: Positive: Nl turgor and temperature Neuro Exam: Positive: Strength at 5/5 X4 ext, Cranial Nerves 3-12 NL Assessment /Plan Problems (1) Empyema, left Status: Acute (2) Pleural effusion Status: Chronic Plan/VTE VTE Prophylaxis Ordered?: Yes Plan ASSESSMENT: Ms. Camarena is a pleasant 64 yo lady with a hx of HTN, depression, anxiety and recurrent LLL empyema 2/2 a pleural effusion. She was recently admitted for sepsis secondary to LLL empyema and was treated with chest tube placement and broad spectrum antibiotics. She was admitted yesterday for recurrence of LLL empyema from Dr. Palacio's clinic. A pigtail catheter was placed, and is draining via pleurovac. PLAN: 1. LLL empyema 2/2 recurrent pleural effusion: pigtail catheter placed by Dr. Palacio. Connected to pleurovac. Monitor daily CXR. Check CBC, CMP. Empiric abx therapy given penicillin allergy: vancomycin, metronidazole IV and levaquin IV. F/u cultures. Pain control norco, percocet. Tylenol prn for fevers. Decreased CT out put noted today Further recommendations as per Dr Palacio 2. HTN: under control with home meds 3. Depression: Continue home med duloxetine. VS, I&O, 24H, Fishbone Vital Signs/I&O Vital Signs Date Time Temp Pulse Resp B/P (MAP) Pulse Ox O2 Delivery O2 Flow Rate FiO2 11/02/19 09:08 84 135/75 11/02/19 08:00 98.5 16 96 Room Air I&O- Last 24 Hours up to 6 AM 11/02/19 06:00 Intake Total 1760 ml Output Total 1213 ml Balance 547 ml Laboratory Data 24H LABS Laboratory Tests 2 11/01/19 12:51: Nucleated Red Blood Cells % (auto) 0.0, Anion Gap 7L, Glomerular Filtration Rate > 60.0, Calcium Level 8.5L 11/02/19 05:42: Nucleated Red Blood Cells % (auto) 0.0, Anion Gap 6L, Glomerular Filtration Rate > 60.0, Calcium Level 8.6L, Immature Granulocyte % (Auto) 2.0, Neutrophils (%) (Auto) 60.3, Lymphocytes (%) (Auto) 22.1L, Monocytes (%) (Auto) 10.8H, E osinophils (%) (Auto) 4.3H, Basophils (%) (Auto) 0.5, Neutrophils # (Auto) 5.8, Lymphocytes # (Auto) 2.1, Monocytes # (Auto) 1.0H, Eosinophils # (Auto) 0.4, Basophils # (Auto) 0.1 11/02/19 09:18: Vancomycin Level Trough 9.1L CBC/BMP Laboratory Tests 11/01/19 12:51 11/02/19 05:42 Microbiology Microbiology 10/31/19 Acid Fast Stain, Received Pending 10/31/19 Mycobacterial Culture, Received Pending 10/31/19 Fungal Smear, Received Pending 10/31/19 Fungal Culture, Received Pending 10/31/19 Gram Stain - Final, Resulted 10/31/19 Anaerobic Culture, Resulted Pending 10/31/19 Body Fluid Culture, Received Pending 10/31/19 Blood Culture - Preliminary, Resulted No Growth after 48 hours. All Specime... 10/31/19 Blood Culture - Preliminary, Resulted No Growth after 48 hours. All Specime... SELENE AUGUSTIN MD Nov 02, 2019 11:02
[2019-11-02] MEDS ORDERED: ALTEPLASE 2MG/2ML VIAL XX ONE (11:30)
[2019-11-02 12:00] VITALS: BP_SYST 157; BP_SYST 161; BP_SYST 162; BP_DIAS 68; BP_DIAS 70; BP_DIAS 72
[2019-11-02] MEDS: FEXOFENADINE 60 MG TAB PO SCH (12:30)
--- NOTE | 2019-11-02 13:12 | REPVR ---
PROCEDURE INFORMATION: Exam: CT Chest Without Contrast Exam date and time: 11/02/2019 11:19 AM Age: 64 years old Clinical indication: Pain; Other: Pleural effusion; Additional info: Pleural effusion, empyema TECHNIQUE: Imaging protocol: Computed tomography of the chest without contrast. 3D rendering (Not supervised by radiologist): MIP and/or 3D reconstructed images were created by the technologist. Radiation optimization: All CT scans at this facility use at least one of these dose optimization techniques: automated exposure control; mA and/or kV adjustment per patient size (includes targeted exams where dose is matched to clinical indication); or iterative reconstruction. COMPARISON: 1. CT Chest with contrast 10/31/2019 10:[address] Chest without contrast 10/13/2019 7:40:[address] Chest without contrast 10/12/2019 8:21:44 PM FINDINGS: Tubes, catheters and devices: Left inferior lower chest pleural pigtail drainage catheter. Lungs: Slight improvement in left lower lobe atelectasis/consolidation. A bronchopleural fistula is not specifically identified. Reactive mild bronchiectasis is present. Right lower lobe calcified pulmonary parenchymal granulomas. Pleural space: Persistent left pleural cavity parietal pleural thickening, stable. No residual left pleural effusion. Minimal left loculated pleural cavity residual gas, decreased from the prior study. Heart: Unremarkable. No cardiomegaly. No pericardial effusion. Aorta: Unremarkable. No aortic aneurysm. Lymph nodes: Subcarinal and right hilar calcified lymph nodes. Gallbladder and bile ducts: The gallbladder is surgically absent, with metallic clips in the gallbladder fossa. Spleen: Slight decrease in size of medial perisplenic gas fluid collection. Stomach and bowel: Previous gastric surgery. Bones/joints: Right lower lumbar spinal pedicle screw and maryan systems the, incompletely imaged. Mild leftward thoracolumbar spinal curvature. Degenerative disk disease is present at mid-thoracic spine disk levels. Soft tissues: Unremarkable. IMPRESSION: 1. Interval complete drainage of left lower chest empyema. 2. Slight improvement in left lower lobe atelectasis/consolidation. 3. Slight decrease in size of medial perisplenic gas fluid collection, previously demonstrated to be secondary to upper gastric suture line disruption, and likely communicating with the left pleural space. 4. Previous gastric surgery. 5. Prior cholecystectomy. Electronically signed by: Rubio Prater On 11/02/2019 13:13:19 PM
[2019-11-02] MEDS ORDERED: LIDOCAINE 1% MDV 20ML VIAL As Ordered ONE (13:18)
[2019-11-02] MEDS ORDERED: VANCOMYCIN HCL 1,000 MG, VIAL MATE ADAPTER 1 EACH in D5W 250 ML IV ONE (15:00)
[2019-11-02] MEDS ORDERED: SODIUM CHLORIDE 0.9% INJ 10 ML SYR IV PRN (15:45)
[2019-11-02 16:00] VITALS: BP 149/71
[2019-11-02] MEDS ORDERED: VANCOMYCIN HCL 500 MG in D5W MINI-BAG PLUS 100 ML IV ONE (16:00)
[2019-11-02] MEDS ORDERED: VANCOMYCIN HCL 1,000 MG, VIAL MATE ADAPTER 1 EACH in D5W 250 ML IV SCH (17:00)
[2019-11-02] MEDS: SODIUM CHLORIDE 0.9% INJ 10 ML SYR IV SCH (17:37)
[2019-11-02] MEDS ORDERED: SODIUM CHLORIDE 0.9% INJ 10 ML SYR IV SCH (18:00)
[2019-11-02] MEDS: LevoFLOXacin IV 750 MG in IV 1 EA IV SCH (18:39)
[2019-11-02 20:00] VITALS: BP 124/63
[2019-11-02] MEDS: rOPINIRole 1MG TAB PO SCH (20:03)
[2019-11-02] MEDS: PERCOCET 5MG/325MG TAB PO PRN (20:04)
[2019-11-02] MEDS: clonazePAM 0.5 MG TAB PO SCH (20:05)
[2019-11-02] MEDS: MONTELUKAST 10 MG TAB PO SCH (20:05)
[2019-11-03] VITALS (7 sets, daily range): BP systolic 118–171; BP diastolic 50–74
[2019-11-03] MEDS: metroNIDAZOLE 500 MG in IV 1 EA IV SCH ×3 (00:35→16:24)
[2019-11-03] MEDS: LEVALBUTEROL 1.25 MG/0.5 ML CONCENTRATE NEB NEB SCH ×4 (02:00→20:42)
[2019-11-03] MEDS: KETOROLAC 30 MG/ML 1ML VIAL IV SCH ×4 (05:17→22:03)
[2019-11-03] MEDS: SODIUM CHLORIDE 0.9% INJ 10 ML SYR IV SCH ×2 (05:18→17:34)
[2019-11-03 05:34] LABS: BASO # 0.1 10^3/uL (0.0-0.2); BASO % 0.8 % (0.0-1.0); EOS # 0.6 10^3/uL (0.0-0.5); EOS % 6.8 % (0.0-3.0); HEMATOCRIT 31.9 % (36.0-47.0); HEMOGLOBIN 9.7 g/dl (12.0-15.5); LYMPH # 2.4 10^3/uL (1.5-5.0); LYMPH % 28.3 % (24.0-44.0); MEAN CORPUSCULAR HEMOGLOBIN 27.5 pg (27.0-33.0); MEAN CORPUSCULAR HGB CONC 30.4 g/dl (32.0-36.5); MEAN CORPUSCULAR VOLUME 90.4 fl (80.0-96.0); MONO % 11.3 % (0.0-5.0); NEUTROPHILS # 4.1 10^3/uL (1.5-8.5); NEUTROPHILS % 48.6 % (36.0-66.0); PLATELET COUNT, AUTOMATED 514 10^3/uL (150-450); RED BLOOD COUNT 3.53 10^6/uL (4.00-5.40); WHITE BLOOD COUNT 8.4 10^3/uL (4.0-10.0)
[2019-11-03 05:53] LABS: BLOOD UREA NITROGEN 14 MG/DL (7-18); CALCIUM LEVEL 8.3 MG/DL (8.8-10.2); CARBON DIOXIDE LEVEL 26 MEQ/L (21-32); CHLORIDE LEVEL 112 MEQ/L (98-107); CREATININE FOR GFR 0.45 MG/DL (0.55-1.30); GLOMERULAR FILTRATION RATE > 60.0 (>45); GLUCOSE, FASTING 81 MG/DL (70-100); POTASSIUM SERUM 3.6 MEQ/L (3.5-5.1); SODIUM LEVEL 145 MEQ/L (136-145)
[2019-11-03] MEDS: VANCOMYCIN HCL 1,000 MG, VIAL MATE ADAPTER 1 EACH in D5W 250 ML IV SCH ×2 (06:07→15:01)
[2019-11-03] MEDS: MOM 30ML SUSPENSION UDC PO SCH ×2 (07:57→08:01)
[2019-11-03] MEDS: HEPARIN SOD (PORCINE) 5000UNITS/ML 1ML VIAL/SYRINGE SC SCH ×2 (07:57→21:19)
[2019-11-03] MEDS: DOCUSATE SODIUM 100 MG CAP PO SCH ×3 (07:57→21:00)
[2019-11-03] MEDS: DULoxetine 30 MG CAP (CYMBALTA) PO SCH (07:57)
[2019-11-03] MEDS: ASPIRIN 81 MG CHEW TABLET PO SCH (07:57)
[2019-11-03] MEDS: PANTOPRAZOLE 40MG TAB (PROTONIX) PO SCH (07:58)
[2019-11-03] MEDS: FEXOFENADINE 60 MG TAB PO SCH (07:58)
[2019-11-03] MEDS: GABAPENTIN 100 MG CAP PO SCH ×2 (07:58→21:20)
[2019-11-03] MEDS: NEBIVOLOL 5 MG TAB (BYSTOLIC) PO SCH (07:59)
[2019-11-03] MEDS ORDERED: ALTEPLASE 2MG/2ML VIAL XX ONE (09:00)
--- NOTE | 2019-11-03 10:26 | REP ---
ULTRASOUND-GUIDED LEFT THORACENTESIS WITH CATHETER PLACEMENT: The procedure was performed under the direct supervision of Dr. Tolbert. HISTORY: The patient has a history of a large left-sided empyema seen on a previous CT scan performed earlier today. The risks and benefits of the procedure were explained to the patient and informed consent was obtained. PROCEDURE: The left empyema was localized using ultrasound guidance. The skin was prepped and draped in a sterile fashion. 1% lidocaine was used as a local anesthetic. Using ultrasound guidance, a 10 [place] Skater APDL catheter was inserted using trocar technique. 360 cc of kennedy/green color fluid was withdrawn and sent to the lab for analysis. The catheter was affixed to the skin and a sterile dressing was applied. The catheter was connected to a Pleur-evac. The patient tolerated the procedure well and there were no immediate complications. After the appropriate amount of monitored convalescence, the patient was discharged from the department. CHELSIE
--- NOTE | 2019-11-03 12:47 | IPNPDOC ---
Subjective Date Seen The patient was seen on 11/03/19. Subjective Chief Complaint/HPI pt comfortable , in no distress General: Denies: ROS Unobtainable, Chills, Night Sweats, Fatigue, Malaise, Normal Appetite, Other Symptoms Constitutional: Denies: Chills, Fever, Malaise, Night Sweats, Weakness, Fatigue, Weight Loss, Lethargy, Other Pulmonary: Denies: Dyspnea, Cough, Pleuritic Chest Pain, Other Symptoms Cardiovascular: Denies: Chest Pain, Palpitations, Orthopnea, Paroxysmal Noc. Dyspnea, Edema, Lt Headedness, Other Symptoms Gastrointestinal: Denies: Nausea, Vomiting, Abdominal Pain, Diarrhea, Constipation, Melena, Hematochezia, Other Symptoms Endocrine: Denies: Polydipsia, Polyphagia, Polyuria, Heat Intolerance, Cold Intolerance, Other Endocrine Sx Neurological: Denies: Weakness, Numbness, Incoordination, Change in speech, Confusion, Seizures, Other Symptoms Objective Physical Examination Chest Exam: Positive: Clear to auscultation, Normal air movement, Other (Chest tube in place and draining) Heart Exam: Positive: Rate Normal, Normal S1, Normal S2 Abdomen Exam: Positive: Normal bowel sounds Skin Exam: Positive: Nl turgor and temperature Neuro Exam: Positive: Strength at 5/5 X4 ext, Cranial Nerves 3-12 NL Assessment /Plan Problems (1) Empyema, left Status: Acute Problem Text: LLL empyema 2/2 recurrent pleural effusion: pigtail catheter placed by Dr. Palacio. Connected to pleurovac. Monitor daily CXR. Check CBC, CMP. Empiric abx therapy given penicillin allergy: vancomycin, metronidazole IV and levaquin IV. F/u cultures. Pain control norco, percocet. Tylenol prn for fevers. Pt scheduled for thrombectomy today discussed with Dr Palacio, pt will probably stay for few days Continue present care (2) Pleural effusion Status: Chronic Problem Text: As above (3) HTN (hypertension) Status: Chronic Problem Text: continue present meds Plan/VTE VTE Prophylaxis Ordered?: Yes VS, I&O, 24H, Fishbone Vital Signs/I&O Vital Signs Date Time Temp Pulse Resp B/P (MAP) Pulse Ox O2 Delivery O2 Flow Rate FiO2 11/03/19 12:00 97.8 75 18 132/50 (77) 96 Room Air I&O- Last 24 Hours up to 6 AM 11/03/19 05:59 Intake Total 1200 ml Output Total 1208 ml Balance -8 ml Laboratory Data 24H LABS Laboratory Tests 2 11/03/19 05:25: Immature Granulocyte % (Auto) 4.2H, Neutrophils (%) (Auto) 48.6, Lymphocytes (%) (Auto) 28.3, Monocytes (%) (Auto) 11.3H, Eosinophils (%) (Auto) 6.8H, Basophils (%) (Auto) 0.8, Neutrophils # (Auto) 4.1, Lymphocytes # (Auto) 2.4, Monocytes # (Auto) 1.0H, Eosinophils # (Auto) 0.6H, Basophils # (Auto) 0.1, Nucleated Red Blood Cells % (auto) 0.0, Anion Gap 7L, Glomerular Filtration Rate > 60.0, Calcium Level 8.3L, Vancomycin Level Trough 21.5H CBC/BMP Laboratory Tests 11/03/19 05:25 Microbiology Microbiology 10/31/19 Acid Fast Stain, Received Pending 10/31/19 Mycobacterial Culture, Received Pending 10/31/19 Fungal Smear, Received Pending 10/31/19 Fungal Culture, Received Pending 10/31/19 Gram Stain - Final, Resulted 10/31/19 Anaerobic Culture, Resulted Pending 10/31/19 Body Fluid Culture - Final, Complete Strep Constellatus Ssp Constel 10/31/19 Blood Culture - Preliminary, Resulted No Growth after 72 hours. All specime... 10/31/19 Blood Culture - Preliminary, Resulted No Growth after 72 hours. All specime... SELENE AUGUSTIN MD Nov 03, 2019 12:47
[2019-11-03] MEDS: clonazePAM 0.5 MG TAB PO SCH (21:20)
[2019-11-03] MEDS: MONTELUKAST 10 MG TAB PO SCH (21:20)
[2019-11-03] MEDS: rOPINIRole 1MG TAB PO SCH (21:20)
[2019-11-03] MEDS: VANCOMYCIN HCL 750 MG, VIAL MATE ADAPTER 1 EACH in D5W 250 ML IV SCH (22:03)
[2019-11-04] VITALS: BP 143/71
[2019-11-04] MEDS: metroNIDAZOLE 500 MG in IV 1 EA IV SCH ×3 (00:45→17:15)
[2019-11-04] MEDS: PERCOCET 5MG/325MG TAB PO PRN ×2 (00:48→19:44)
[2019-11-04] MEDS ORDERED: VANICREAM MOISTURIZING SKIN CREAM 113GM TUBE TOP ONE (01:15)
[2019-11-04] MEDS: LEVALBUTEROL 1.25 MG/0.5 ML CONCENTRATE NEB NEB SCH ×4 (01:43→20:40)
[2019-11-04 04:00] VITALS: BP 146/69
[2019-11-04] MEDS: KETOROLAC 30 MG/ML 1ML VIAL IV SCH ×4 (04:19→22:21)
[2019-11-04] MEDS: SODIUM CHLORIDE 0.9% INJ 10 ML SYR IV SCH ×2 (04:20→19:44)
[2019-11-04 04:56] LABS: BASO # 0.1 10^3/uL (0.0-0.2); BASO % 0.9 % (0.0-1.0); EOS # 0.8 10^3/uL (0.0-0.5); EOS % 8.2 % (0.0-3.0); HEMATOCRIT 31.2 % (36.0-47.0); HEMOGLOBIN 9.7 g/dl (12.0-15.5); LYMPH # 2.5 10^3/uL (1.5-5.0); LYMPH % 25.3 % (24.0-44.0); MEAN CORPUSCULAR HEMOGLOBIN 27.7 pg (27.0-33.0); MEAN CORPUSCULAR HGB CONC 31.1 g/dl (32.0-36.5); MEAN CORPUSCULAR VOLUME 89.1 fl (80.0-96.0); MONO # 0.9 10^3/uL (0.0-0.8); MONO % 9.4 % (0.0-5.0); NEUTROPHILS # 5.2 10^3/uL (1.5-8.5); NEUTROPHILS % 51.8 % (36.0-66.0); PLATELET COUNT, AUTOMATED 511 10^3/uL (150-450); WHITE BLOOD COUNT 9.9 10^3/uL (4.0-10.0)
[2019-11-04 05:14] LABS: BLOOD UREA NITROGEN 12 MG/DL (7-18); CALCIUM LEVEL 8.3 MG/DL (8.8-10.2); CARBON DIOXIDE LEVEL 28 MEQ/L (21-32); CHLORIDE LEVEL 109 MEQ/L (98-107); CREATININE FOR GFR 0.43 MG/DL (0.55-1.30); GLOMERULAR FILTRATION RATE > 60.0 (>45); GLUCOSE, FASTING 78 MG/DL (70-100); POTASSIUM SERUM 3.8 MEQ/L (3.5-5.1); SODIUM LEVEL 143 MEQ/L (136-145)
[2019-11-04] MEDS: VANCOMYCIN HCL 750 MG, VIAL MATE ADAPTER 1 EACH in D5W 250 ML IV SCH ×3 (07:01→22:21)
[2019-11-04 08:00] VITALS: BP 149/70
[2019-11-04] MEDS: DOCUSATE SODIUM 100 MG CAP PO SCH ×2 (09:00→21:00)
[2019-11-04] MEDS: MOM 30ML SUSPENSION UDC PO SCH (09:00)
[2019-11-04] MEDS: ASPIRIN 81 MG CHEW TABLET PO SCH (09:57)
[2019-11-04] MEDS: FEXOFENADINE 60 MG TAB PO SCH (09:57)
[2019-11-04] MEDS: PANTOPRAZOLE 40MG TAB (PROTONIX) PO SCH (09:57)
[2019-11-04] MEDS: GABAPENTIN 100 MG CAP PO SCH ×2 (09:58→20:59)
[2019-11-04] MEDS: DULoxetine 30 MG CAP (CYMBALTA) PO SCH (09:58)
[2019-11-04] MEDS: NEBIVOLOL 5 MG TAB (BYSTOLIC) PO SCH (09:59)
[2019-11-04] MEDS: HEPARIN SOD (PORCINE) 5000UNITS/ML 1ML VIAL/SYRINGE SC SCH ×2 (10:06→21:00)
--- NOTE | 2019-11-04 10:54 | IPNPDOC ---
Subjective Date Seen The patient was seen on 11/04/19. Subjective Chief Complaint/HPI pt comfortable, in no distress General: Denies: ROS Unobtainable, Chills, Night Sweats, Fatigue, Malaise, Normal Appetite, Other Symptoms Pulmonary: Denies: Dyspnea, Cough, Pleuritic Chest Pain, Other Symptoms Cardiovascular: Denies: Chest Pain, Palpitations, Orthopnea, Paroxysmal Noc. Dyspnea, Edema, Lt Headedness, Other Symptoms Gastrointestinal: Denies: Nausea, Vomiting, Abdominal Pain, Diarrhea, Constipation, Melena, Hematochezia, Other Symptoms Musculoskeletal: Denies: Neck Pain, Back Pain, Shoulder Pain, Arm Pain, Hand Pain, Leg Pain, Foot Pain, Joint Pain, Muscle Pain, Spasms, Other Symptoms Neurological: Denies: Weakness, Numbness, Incoordination, Change in speech, Confusion, Seizures, Other Symptoms Objective Physical Examination Chest Exam: Positive: Clear to auscultation, Normal air movement, Other (Chest tube in place and draining) Heart Exam: Positive: Rate Normal, Normal S1, Normal S2 Abdomen Exam: Positive: Normal bowel sounds Skin Exam: Positive: Nl turgor and temperature Neuro Exam: Positive: Strength at 5/5 X4 ext, Cranial Nerves 3-12 NL Assessment /Plan Problems (1) Empyema, left Status: Acute Problem Text: LLL empyema 2/2 recurrent pleural effusion: pigtail catheter placed by Dr. Palacio. Connected to pleurovac. Monitor daily CXR. Check CBC, CMP. Empiric abx Pt had tPA therapy yesterday Discussed with dr Palacio, possible Dc ion Thursday Continue present care (2) Pleural effusion Status: Chronic Problem Text: As above (3) HTN (hypertension) Status: Chronic Problem Text: continue present meds Plan/VTE VTE Prophylaxis Ordered?: Yes VS, I&O, 24H, Fishbone Vital Signs/I&O Vital Signs Date Time Temp Pulse Resp B/P (MAP) Pulse Ox O2 Delivery O2 Flow Rate FiO2 11/04/19 09:59 81 149/70 11/04/19 08:00 97.2 18 97 Room Air I&O- Last 24 Hours up to 6 AM 11/04/19 05:59 Intake Total 2315 ml Output Total 1225 ml Balance 1090 ml Laboratory Data 24H LABS Laboratory Tests 2 11/03/19 14:00: Vancomycin Level Trough 20.7H 11/04/19 04:40: Immature Granulocyte % (Auto) 4.4H, Neutrophils (%) (Auto) 51.8, Lymphocytes (%) (Auto) 25.3, Monocytes (%) (Auto) 9.4H, Eosinophils (%) (Auto) 8.2H, Basophils (%) (Auto) 0.9, Neutrophils # (Auto) 5.2, Lymphocytes # (Auto) 2.5, Monocytes # (Auto) 0.9H, Eosinophils # (Auto) 0.8H, Basophils # (Auto) 0.1, Nucleated Red Blood Cells % (auto) 0.0, Anion Gap 6L, Glomerular Filtration Rate > 60.0, Calcium Level 8.3L CBC/BMP Laboratory Tests 11/04/19 04:40 Microbiology Microbiology 10/31/19 Acid Fast Stain, Received Pending 10/31/19 Mycobacterial Culture, Received Pending 10/31/19 Fungal Smear, Received Pending 10/31/19 Fungal Culture, Received Pending 10/31/19 Gram Stain - Final, Resulted 10/31/19 Anaerobic Culture, Resulted Pending 10/31/19 Body Fluid Culture - Final, Complete Strep Constellatus Ssp Constel 10/31/19 Blood Culture - Preliminary, Resulted No Growth after 72 hours. All specime... 10/31/19 Blood Culture - Preliminary, Resulted No Growth after 72 hours. All specime... SELENE AUGUSTIN MD Nov 04, 2019 10:54
[2019-11-04 12:00] VITALS: BP 141/70
[2019-11-04 16:00] VITALS: BP 144/73
[2019-11-04] MEDS: LevoFLOXacin IV 750 MG in IV 1 EA IV SCH (18:30)
[2019-11-04 20:00] VITALS: BP 126/65
[2019-11-04] MEDS: clonazePAM 0.5 MG TAB PO SCH (20:59)
[2019-11-04] MEDS: rOPINIRole 1MG TAB PO SCH (20:59)
[2019-11-04] MEDS: MONTELUKAST 10 MG TAB PO SCH (20:59)
[2019-11-05] VITALS (7 sets, daily range): BP systolic 117–154; BP diastolic 66–78
[2019-11-05] MEDS: metroNIDAZOLE 500 MG in IV 1 EA IV SCH ×3 (01:23→16:30)
[2019-11-05] MEDS: LEVALBUTEROL 1.25 MG/0.5 ML CONCENTRATE NEB NEB SCH ×4 (01:24→19:38)
[2019-11-05] MEDS: KETOROLAC 30 MG/ML 1ML VIAL IV SCH ×2 (03:29→09:29)
[2019-11-05] MEDS: SODIUM CHLORIDE 0.9% INJ 10 ML SYR IV SCH ×2 (06:05→17:44)
[2019-11-05 06:56] LABS: BASO # 0.1 10^3/uL (0.0-0.2); BASO % 0.8 % (0.0-1.0); EOS # 0.7 10^3/uL (0.0-0.5); EOS % 8.6 % (0.0-3.0); HEMATOCRIT 32.2 % (36.0-47.0); LYMPH # 2.3 10^3/uL (1.5-5.0); LYMPH % 29.9 % (24.0-44.0); MEAN CORPUSCULAR HEMOGLOBIN 27.5 pg (27.0-33.0); MEAN CORPUSCULAR HGB CONC 31.1 g/dl (32.0-36.5); MEAN CORPUSCULAR VOLUME 88.5 fl (80.0-96.0); MONO # 0.7 10^3/uL (0.0-0.8); NEUTROPHILS # 3.6 10^3/uL (1.5-8.5); NEUTROPHILS % 46.9 % (36.0-66.0); PLATELET COUNT, AUTOMATED 467 10^3/uL (150-450); RED BLOOD COUNT 3.64 10^6/uL (4.00-5.40); WHITE BLOOD COUNT 7.7 10^3/uL (4.0-10.0)
[2019-11-05 07:15] LABS: BLOOD UREA NITROGEN 11 MG/DL (7-18); CALCIUM LEVEL 8.3 MG/DL (8.8-10.2); CARBON DIOXIDE LEVEL 29 MEQ/L (21-32); CHLORIDE LEVEL 110 MEQ/L (98-107); CREATININE FOR GFR 0.54 MG/DL (0.55-1.30); GLOMERULAR FILTRATION RATE > 60.0 (>45); GLUCOSE, FASTING 85 MG/DL (70-100); POTASSIUM SERUM 4.1 MEQ/L (3.5-5.1); SODIUM LEVEL 144 MEQ/L (136-145)
[2019-11-05] MEDS: VANCOMYCIN HCL 750 MG, VIAL MATE ADAPTER 1 EACH in D5W 250 ML IV SCH ×3 (07:54→23:15)
[2019-11-05] MEDS: PANTOPRAZOLE 40MG TAB (PROTONIX) PO SCH (07:54)
[2019-11-05] MEDS: FEXOFENADINE 60 MG TAB PO SCH (07:54)
[2019-11-05] MEDS: GABAPENTIN 100 MG CAP PO SCH ×2 (07:54→21:10)
[2019-11-05] MEDS: DULoxetine 30 MG CAP (CYMBALTA) PO SCH (07:54)
[2019-11-05] MEDS: NEBIVOLOL 5 MG TAB (BYSTOLIC) PO SCH (07:55)
[2019-11-05] MEDS: ASPIRIN 81 MG CHEW TABLET PO SCH (07:55)
[2019-11-05] MEDS: DOCUSATE SODIUM 100 MG CAP PO SCH ×2 (07:56→21:00)
[2019-11-05] MEDS: MOM 30ML SUSPENSION UDC PO SCH (07:56)
[2019-11-05] MEDS: HEPARIN SOD (PORCINE) 5000UNITS/ML 1ML VIAL/SYRINGE SC SCH ×2 (07:56→21:11)
--- NOTE | 2019-11-05 10:28 | IPNPDOC ---
Subjective Date Seen The patient was seen on 11/05/19. Subjective Chief Complaint/HPI pt comfortable, in no distress General: Denies: ROS Unobtainable, Chills, Night Sweats, Fatigue, Malaise, Normal Appetite, Other Symptoms Pulmonary: Denies: Dyspnea, Cough, Pleuritic Chest Pain, Other Symptoms Cardiovascular: Denies: Chest Pain, Palpitations, Orthopnea, Paroxysmal Noc. Dyspnea, Edema, Lt Headedness, Other Symptoms Gastrointestinal: Denies: Nausea, Vomiting, Abdominal Pain, Diarrhea, Constipation, Melena, Hematochezia, Other Symptoms Endocrine: Denies: Polydipsia, Polyphagia, Polyuria, Heat Intolerance, Cold Intolerance, Other Endocrine Sx Musculoskeletal: Denies: Neck Pain, Back Pain, Shoulder Pain, Arm Pain, Hand Pain, Leg Pain, Foot Pain, Joint Pain, Muscle Pain, Spasms, Other Symptoms Neurological: Denies: Weakness, Numbness, Incoordination, Change in speech, C onfusion, Seizures, Other Symptoms Objective Physical Examination Chest Exam: Positive: Clear to auscultation, Normal air movement, Other (Chest tube in place and draining) Heart Exam: Positive: Rate Normal, Normal S1, Normal S2 Abdomen Exam: Positive: Normal bowel sounds Skin Exam: Positive: Nl turgor and temperature Neuro Exam: Positive: Strength at 5/5 X4 ext, Cranial Nerves 3-12 NL Assessment /Plan Problems (1) Empyema, left Status: Acute Problem Text: LLL empyema 2/2 recurrent pleural effusion: pigtail catheter placed by Dr. Palacio. Connected to pleurovac. Monitor daily CXR. Check CBC, CMP. Empiric abx Pt had tPA few days ago Discussed with dr Palacio, possible DC chest tube tomorrow and DC on Thursday Pt is currently on Levaquin/Flagyl?vanco Body fluid culure positive for Strep Constellus- resistant to clinda and Erythro. Anaerobic culture: Pending Body Fluid Fungal/Myobact cultures and smears: pending Will await final cultures before deciding out patient antibiotic regimen (2) Pleural effusion Status: Chronic Problem Text: As above (3) HTN (hypertension) Status: Chronic Problem Text: continue present meds Plan/VTE VTE Prophylaxis Ordered?: Yes VS, I&O, 24H, Fishbone Vital Signs/I&O Vital Signs Date Time Temp Pulse Resp B/P (MAP) Pulse Ox O2 Delivery O2 Flow Rate FiO2 11/05/19 08:00 97.9 83 20 144/71 (95) 96 Room Air I&O- Last 24 Hours up to 6 AM 11/05/19 06:00 Intake Total 2225 ml Output Total 1320 ml Balance 905 ml Laboratory Data 24H LABS Laboratory Tests 2 11/05/19 06:29: Immature Granulocyte % (Auto) 4.8H, Neutrophils (%) (Auto) 46.9, Lymphocytes (%) (Auto) 29.9, Monocytes (%) (Auto) 9.0H, Eosinophils (%) (Auto) 8.6H, Basophils (%) (Auto) 0.8, Neutrophils # (Auto) 3.6, Lymphocytes # (Auto) 2.3, Monocytes # (Auto) 0.7, Eosinophils # (Auto) 0.7H, Basophils # (Auto) 0.1, Nucleated Red Blood Cells % (auto) 0.0, Anion Gap 5L, Glomerular Filtration Rate > 60.0, Calcium Level 8.3L, Vancomycin Level Trough 19.1 CBC/BMP Laboratory Tests 11/05/19 06:29 Microbiology Microbiology 10/31/19 Acid Fast Stain, Received Pending 10/31/19 Mycobacterial Culture, Received Pending 10/31/19 Fungal Smear, Received Pending 10/31/19 Fungal Culture, Received Pending 10/31/19 Gram Stain - Final, Resulted 10/31/19 Anaerobic Culture, Resulted Pending 10/31/19 Body Fluid Culture - Final, Complete Strep Constellatus Ssp Constel 10/31/19 Blood Culture - Preliminary, Resulted No Growth after 72 hours. All specime... 10/31/19 Blood Culture - Preliminary, Resulted No Growth after 72 hours. All specime... SELENE AUGUSTIN MD Nov 05, 2019 10:28
[2019-11-05] MEDS: rOPINIRole 1MG TAB PO SCH (21:10)
[2019-11-05] MEDS: clonazePAM 0.5 MG TAB PO SCH (21:10)
[2019-11-05] MEDS: MONTELUKAST 10 MG TAB PO SCH (21:10)
[2019-11-05] MEDS: PERCOCET 5MG/325MG TAB PO PRN (21:12)
[2019-11-06] VITALS: BP 149/70
[2019-11-06] MEDS: metroNIDAZOLE 500 MG in IV 1 EA IV SCH ×2 (00:53→08:19)
[2019-11-06] MEDS: LEVALBUTEROL 1.25 MG/0.5 ML CONCENTRATE NEB NEB SCH ×4 (01:47→19:58)
[2019-11-06 04:00] VITALS: BP 141/92
[2019-11-06] MEDS: PERCOCET 5MG/325MG TAB PO PRN ×2 (04:08→16:51)
[2019-11-06 06:18] LABS: BASO # 0.1 10^3/uL (0.0-0.2); BASO % 0.6 % (0.0-1.0); EOS # 0.7 10^3/uL (0.0-0.5); HEMATOCRIT 31.9 % (36.0-47.0); LYMPH # 2.1 10^3/uL (1.5-5.0); LYMPH % 26.3 % (24.0-44.0); MEAN CORPUSCULAR HEMOGLOBIN 27.8 pg (27.0-33.0); MEAN CORPUSCULAR HGB CONC 31.3 g/dl (32.0-36.5); MEAN CORPUSCULAR VOLUME 88.6 fl (80.0-96.0); MONO # 0.8 10^3/uL (0.0-0.8); MONO % 10.5 % (0.0-5.0); NEUTROPHILS # 4.1 10^3/uL (1.5-8.5); PLATELET COUNT, AUTOMATED 415 10^3/uL (150-450)
[2019-11-06] MEDS: VANCOMYCIN HCL 750 MG, VIAL MATE ADAPTER 1 EACH in D5W 250 ML IV SCH (06:28)
[2019-11-06] MEDS: SODIUM CHLORIDE 0.9% INJ 10 ML SYR IV SCH ×2 (06:29→18:03)
[2019-11-06 06:39] LABS: BLOOD UREA NITROGEN 8 MG/DL (7-18); CALCIUM LEVEL 8.3 MG/DL (8.8-10.2); CARBON DIOXIDE LEVEL 29 MEQ/L (21-32); CHLORIDE LEVEL 109 MEQ/L (98-107); CREATININE FOR GFR 0.52 MG/DL (0.55-1.30); GLOMERULAR FILTRATION RATE > 60.0 (>45); GLUCOSE, FASTING 90 MG/DL (70-100); POTASSIUM SERUM 3.7 MEQ/L (3.5-5.1); SODIUM LEVEL 143 MEQ/L (136-145)
[2019-11-06 08:00] VITALS: BP 148/76
[2019-11-06] MEDS: PANTOPRAZOLE 40MG TAB (PROTONIX) PO SCH (08:17)
[2019-11-06] MEDS: DULoxetine 30 MG CAP (CYMBALTA) PO SCH (08:17)
[2019-11-06] MEDS: ASPIRIN 81 MG CHEW TABLET PO SCH (08:17)
[2019-11-06] MEDS: GABAPENTIN 100 MG CAP PO SCH ×2 (08:17→21:04)
[2019-11-06] MEDS: FEXOFENADINE 60 MG TAB PO SCH (08:17)
[2019-11-06] MEDS: HEPARIN SOD (PORCINE) 5000UNITS/ML 1ML VIAL/SYRINGE SC SCH ×2 (08:18→21:03)
[2019-11-06] MEDS: NEBIVOLOL 5 MG TAB (BYSTOLIC) PO SCH (08:18)
[2019-11-06] MEDS: MOM 30ML SUSPENSION UDC PO SCH (08:19)
[2019-11-06] MEDS: DOCUSATE SODIUM 100 MG CAP PO SCH ×2 (08:19→21:00)
[2019-11-06 11:28] VITALS: BP 140/72
--- NOTE | 2019-11-06 11:59 | IPNPDOC ---
Subjective Date Seen The patient was seen on 11/06/19. Subjective Chief Complaint/HPI No new complaints, awaiting visit from dr Palacio General: Denies: ROS Unobtainable, Chills, Night Sweats, Fatigue, Malaise, Normal Appetite, Other Symptoms Constitutional: Denies: Chills, Fever, Malaise, Night Sweats, Weakness, Fatigue, Weight Loss, Lethargy, Other Pulmonary: Denies: Dyspnea, Cough, Pleuritic Chest Pain, Other Symptoms Cardiovascular: Denies: Chest Pain, Palpitations, Orthopnea, Paroxysmal Noc. Dyspnea, Edema, Lt Headedness, Other Symptoms Gastrointestinal: Denies: Nausea, Vomiting, Abdominal Pain, Diarrhea, Con stipation, Melena, Hematochezia, Other Symptoms Musculoskeletal: Denies: Neck Pain, Back Pain, Shoulder Pain, Arm Pain, Hand Pain, Leg Pain, Foot Pain, Joint Pain, Muscle Pain, Spasms, Other Symptoms Neurological: Denies: Weakness, Numbness, Incoordination, Change in speech, Confusion, Seizures, Other Symptoms Psych: Denies: Mood Normal, Anxiety, Depression, Memory Issues, Thoughts of Self Harm, Anger, Thoughts of Harming Other, Other Psych Objective Physical Examination Chest Exam: Positive: Clear to auscultation, Normal air movement, Other (Chest tube in place and draining) Heart Exam: Positive: Rate Normal, Normal S1, Normal S2 Abdomen Exam: Positive: Normal bowel sounds Skin Exam: Positive: Nl turgor and temperature Neuro Exam: Positive: Strength at 5/5 X4 ext, Cranial Nerves 3-12 NL Assessment /Plan Problems (1) Empyema, left Status: Acute Problem Text: LLL empyema 2/2 recurrent pleural effusion: pigtail catheter placed by Dr. Palacio. Connected to pleurovac. Monitor daily CXR. Check CBC, CMP. Empiric abx Pt had tPA few days ago Discussed with dr Palacio, possible DC chest tube today and DC on Thursday Pt is currently on Levaquin/Flagyl/vanco Body fluid culure positive for Strep Constellus- resistant to clinda and Erythro. Anaerobic culture: Pending Body Fluid Fungal/Myobact cultures and smears: pending Will await final cultures before deciding out patient antibiotic regimen (2) Pleural effusion Status: Chronic Problem Text: As above (3) HTN (hypertension) Status: Chronic Problem Text: continue present meds Plan/VTE VTE Prophylaxis Ordered?: Yes VS, I&O, 24H, Fishbone Vital Signs/I&O Vital Signs Date Time Temp Pulse Resp B/P (MAP) Pulse Ox O2 Delivery O2 Flow Rate FiO2 11/06/19 11:28 98.5 77 20 140/72 (94) 96 Room Air I&O- Last 24 Hours up to 6 AM 11/06/19 06:00 Intake Total 2050 ml Output Total 2150 ml Balance -100 ml Laboratory Data 24H LABS Laboratory Tests 2 11/06/19 05:52: Immature Granulocyte % (Auto) 2.6, Neutrophils (%) (Auto) 51.0, Lymphocytes (%) (Auto) 26.3, Monocytes (%) (Auto) 10.5H, Eosinophils (%) (Auto) 9.0H, Basophils (%) (Auto) 0.6, Neutrophils # (Auto) 4.1, Lymphocytes # (Auto) 2.1, Monocytes # (Auto) 0.8, Eosinophils # (Auto) 0.7H, Basophils # (Auto) 0.1, Nucleated Red Blood Cells % (auto) 0.0, Anion Gap 5L, Glomerular Filtration Rate > 60.0, Calcium Level 8.3L CBC/BMP Laboratory Tests 11/06/19 05:52 Microbiology Microbiology 10/31/19 Acid Fast Stain, Received Pending 10/31/19 Mycobacterial Culture, Received Pending 10/31/19 Fungal Smear, Received Pending 10/31/19 Fungal Culture, Received Pending 10/31/19 Gram Stain - Final, Complete 10/31/19 Anaerobic Culture - Final, Complete Porphyromonas Asaccharolytica 10/31/19 Body Fluid Culture - Final, Complete Strep Constellatus Ssp Constel 10/31/19 Blood Culture - Final, Complete NO GROWTH AFTER 5 DAYS 10/31/19 Blood Culture - Final, Complete NO GROWTH AFTER 5 DAYS SELENE AUGUSTIN MD Nov 06, 2019 11:59
[2019-11-06] MEDS: metroNIDAZOLE (FLAGYL) 500MG TABLET PO SCH ×3 (12:13→21:04)
[2019-11-06 15:40] VITALS: BP 126/66
[2019-11-06] MEDS ORDERED: LevoFLOXacin 750 MG TABLET PO SCH (18:00)
[2019-11-06 20:00] VITALS: BP 134/66
[2019-11-06] MEDS: MONTELUKAST 10 MG TAB PO SCH (21:03)
[2019-11-06] MEDS: clonazePAM 0.5 MG TAB PO SCH (21:03)
[2019-11-06] MEDS: rOPINIRole 1MG TAB PO SCH (21:04)
[2019-11-07] VITALS: BP 135/77
[2019-11-07] MEDS: LEVALBUTEROL 1.25 MG/0.5 ML CONCENTRATE NEB NEB SCH ×2 (02:00→08:22)
[2019-11-07 04:00] VITALS: BP 155/86
[2019-11-07] MEDS: ACETAMINOPHEN TAB 650MG DOSE (2X325MG) PO PRN (04:05)
[2019-11-07] MEDS: SODIUM CHLORIDE 0.9% INJ 10 ML SYR IV SCH (06:03)
[2019-11-07 08:00] VITALS: BP 154/82
[2019-11-07] MEDS: metroNIDAZOLE (FLAGYL) 500MG TABLET PO SCH ×2 (08:26→12:29)
[2019-11-07] MEDS: PANTOPRAZOLE 40MG TAB (PROTONIX) PO SCH (08:26)
[2019-11-07] MEDS: DULoxetine 30 MG CAP (CYMBALTA) PO SCH (08:27)
[2019-11-07] MEDS: FEXOFENADINE 60 MG TAB PO SCH (08:27)
[2019-11-07] MEDS: ASPIRIN 81 MG CHEW TABLET PO SCH (08:27)
[2019-11-07] MEDS: HEPARIN SOD (PORCINE) 5000UNITS/ML 1ML VIAL/SYRINGE SC SCH (08:27)
[2019-11-07 08:28] VITALS: BP 154/82
[2019-11-07] MEDS: GABAPENTIN 100 MG CAP PO SCH (08:28)
[2019-11-07] MEDS: NEBIVOLOL 5 MG TAB (BYSTOLIC) PO SCH (08:28)
[2019-11-07] MEDS: DOCUSATE SODIUM 100 MG CAP PO SCH (08:40)
[2019-11-07] MEDS: MOM 30ML SUSPENSION UDC PO SCH (08:40)
[2019-11-07] MEDS: PERCOCET 5MG/325MG TAB PO PRN (08:43)
[2019-11-07] MEDS ORDERED: NYSTATIN 100,000 UNITS/GM TOPICAL PWD 15 GM TOP SCH (09:00)
--- NOTE | 2019-11-07 10:27 | DS.PDOC ---
Discharge Summary General Date of Admission Oct 31, 2019 at 12:25 Date of Discharge 11/07/19 Discharge Summary PROCEDURES PERFORMED DURING STAY: [None]. ADMITTING DIAGNOSES: 1. [pleural effusion]. DISCHARGE DIAGNOSES: 1. [ LLL pleural effusion with empyema,HTN,GERD<DEpression.RLS ]. COMPLICATIONS/CHIEF COMPLAINT: Pleural Effusion. HISTORY OF PRESENT ILLNESS: [ 64 yo F with a hx of recurrent LLL effusion with empyema (most recently discharged from [facility] on 10/17/19), HNT, GERD, depression, RLS, who was referred to ED by Dr. Palacio from the thoracic surgery clinic due to worsening LLL empyema. She began to experience worsening shortness of breath for the past 5 days, worse on exertion. 2 days ago, she felt subjective fevers and pronounced chills which improved with ibuprofen. She denies chest pain, palpitations, hemoptysis or wheezing. She completed a follow up xray and was evaluated by Dr. Palacio in clinic today. She was subsequently refered to the ER. On arrival she was tachycardic, febrile and saturated to 94% on RA. WBC 16. CT chest w contrast showed a large LLL collection c/w empyema. L sided pigtail catheter was placed by Dr. Palacio and cultures were sent. ]. HOSPITAL COURSE: [ LLL empyema 2/2 recurrent pleural effusion: pigtail catheter placed by Dr. Palacio. Connected to pleurovac. Monitor daily CXR. Check CBC, CMP. Empiric abx Pt had tPA few days ago Discussed with dr Palacio, possible DC chest tube today and DC on Thursday Pt is currently on Levaquin/Flagyl/vanco Body fluid culure positive for Strep Constellus- resistant to clinda and Erythro. Anaerobic culture: PORPHYROMONAS ASACCHAROLYTICA Body Fluid Fungal/Myobact cultures and smears: pending Once cleared by Dr Palacio, pt can DC home on PO levaquin/Flagyl or further as per Dr Palacios recommendations. F/U with Dr Palacio as out pt in one week ]. DISCHARGE MEDICATIONS: Please see below. ALLERGIES: Please see below. PHYSICAL EXAMINATION ON DISCHARGE: VITAL SIGNS: Please see below. GENERAL: [WNL] HEENT: [LINDA/EOMI] NECK: [Supple] CARDIOVASCULAR EXAMINATION: [S1S2 regular] RESPIRATORY EXAMINATION: [Clear to A&P] ABDOMINAL EXAMINATION: [Benign] EXTREMITIES: [no CCE] SKIN: [NL] NEUROLOGICAL EXAMINATION: [No deficit] PSYCHIATRIC EXAMINATION: [NL] LABORATORY DATA: Please see below. IMAGING: [None] PROGNOSIS: [good] ACTIVITY: [As tolerated]. DIET: [as tolerated] DISCHARGE PLAN: [as per Dr Palacio] DISPOSITION: home DISCHARGE INSTRUCTIONS: 1. [as per DC instructions]. ITEMS TO FOLLOWUP ON ON OUTPATIENT: 1. [as above]. DISCHARGE CONDITION: [Stable]. TIME SPENT ON DISCHARGE: 35 minutes. Vital Signs/I&Os Vital Signs Date Time Temp Pulse Resp B/P (MAP) Pulse Ox O2 Delivery O2 Flow Rate FiO2 11/07/19 09:30 18 Room Air 11/07/19 08:28 89 154/82 11/07/19 08:00 97.5 95 I&O- Last 24 Hours up to 6 AM 11/07/19 06:00 Intake Total 1193 ml Output Total 1650 ml Balance -457 ml Microbiology Microbiology 10/31/19 Acid Fast Stain, Received Pending 10/31/19 Mycobacterial Culture, Received Pending 10/31/19 Fungal Smear, Received Pending 10/31/19 Fungal Culture, Received Pending 10/31/19 Gram Stain - Final, Complete 10/31/19 Anaerobic Culture - Final, Complete Porphyromonas Asaccharolytica 10/31/19 Body Fluid Culture - Final, Complete Strep Constellatus Ssp Constel 10/31/19 Blood Culture - Final, Complete NO GROWTH AFTER 5 DAYS 10/31/19 Blood Culture - Final, Complete NO GROWTH AFTER 5 DAYS Discharge Medications Scheduled Aspirin (Aspirin) 81 Mg Tab.chew, 81 MG PO DAILY, (Reported) Calcium Carbonate (Calcium) 500 Mg Tab.chew, 500 MG PO DAILY, (Reported) Cholecalciferol (Vitamin D3) (Vitamin D3) 1,000 Unit Tablet, 2,000 UNITS PO DAILY, (Reported) Clonazepam (Clonazepam) 1 Mg Tablet, 0.5 MG PO QHS, (Reported) Cyanocobalamin (Vitamin B-12) (Vitamin B-12) 500 Mcg Tablet, 500 MCG PO DAILY, (Reported) Cyclosporine (Restasis) 0.05% Droperette, 1 DROP OD BID, (Reported) Cyclosporine (Restasis) 0.05% Droperette, 1 DROP OU BID, (Reported) Duloxetine HCl (Duloxetine HCl) 30 Mg Capsule.dr, 60 MG PO DAILY, (Reported) Fluconazole (Fluconazole) 150 Mg Tablet, 150 MG PO ASDIRECTED, (Reported) X2 DOSES, LAST DOSE DUE 10/31/19 Gabapentin (Gabapentin) 100 Mg Cap, 100 MG PO BID, (Reported) Hydroxyzine HCl (Hydroxyzine HCl) 25 Mg Tab, 25 MG PO QHS, (Reported) Montelukast Sodium (Singulair) 10 Mg Tab, 10 MG PO QHS, (Reported) Multivitamins (Thera M Plus Tablet) 1 Each Tablet, 1 TAB PO DAILY, (Reported) Nebivolol HCl (Bystolic) 5 Mg Tab, 2.5 MG PO DAILY, (Reported) Omeprazole (Omeprazole) 20 Mg Cap, 20 MG PO BID, (Reported) Ropinirole HCl (Ropinirole HCl) 1 Mg Tablet, 2 MG PO QHS, (Reported) Scheduled PRN Fexofenadine HCl (Iris Allergy) 60 Mg Tablet, 60 MG PO DAILY PRN for allergies, (Reported) Naproxen (Naproxen) 250 Mg Tab, 250 MG PO BID PRN for PAIN, (Reported) Tramadol HCl (Tramadol HCl) 50 Mg Tab, 50 MG PO BID PRN for PAIN, (Reported) Allergies Coded Allergies: Penicillins (Verified Allergy, Severe, throat closes, 10/31/19) morphine (Verified Allergy, Severe, stops breathing, 10/31/19) Sulfa (Sulfonamide Antibiotics) (Verified Allergy, Intermediate, 10/31/19) erythromycin base (Verified Allergy, Intermediate, 10/31/19) aspartame (Verified Allergy, Unknown, 10/31/19) tizanidine (Verified Allergy, Unknown, 10/31/19) SELENE AUGUSTIN MD Nov 07, 2019 10:27
[2019-11-07] MEDS ORDERED: PERCOCET PO (11:51)
[2019-11-07] MEDS ORDERED: LEVA750T7 PO (11:51)
[2019-11-07] MEDS ORDERED: METR-265 PO (11:51)
[2019-11-07 12:00] VITALS: BP 142/70
--- NOTE | 2019-11-09 15:15 | REP ---
PICC LINE INSERTION WITH HARSHAD The procedure was performed under the direct supervision of Dr. Tolbert. The risks and benefits of the procedure were explained to the patient and informed consent was obtained. The right basilic vein was localized using ultrasound guidance. The skin was prepped and draped in a sterile fashion. A 1% Lidocaine was used as a local anesthetic. Using ultrasound guidance, the basilic vein was cannulated and a 0.018 guidewire was inserted and advanced to the SVC using fluoroscopic guidance. The needle was removed and a 5.5 Mauritanian dilator and Peel-Away sheath was inserted over the guidewire. A 5.5 [place]itanian dual-lumen catheter was cut to a length of 36 cm. The dilator was removed and the catheter was inserted over the guidewire with the tip ending in the SVC. The Peel-Away sheath was removed, and the catheter was flushed with heparinized saline as per hospital protocol. The catheter was affixed to the skin and a sterile dressing was applied. The patient tolerated the procedure well and there were no immediate complications. 0.2 minutes of fluoroscopy time was utilized for this procedure. CHELSIE
--- NOTE | 2019-11-09 15:18 | REP ---
CHEST X-RAY CLINICAL: Follow-up pleural effusion. TECHNIQUE: PA and lateral. COMPARISON: 11/02/2019. FINDINGS: Pigtailed pleural catheter again identified in stable position along the posterior mid left lower lung zone. Associated moderate left pleural effusion and passive atelectasis/left lower lobe consolidation again noted and unchanged. The right hemithorax appears clear. No obvious pneumothorax. A right-sided PICC line is now identified with tip in the SVC. The mediastinum and cardiac silhouette are stable and grossly within normal limits. The skeletal structures are intact. IMPRESSION: 1. Left pleural effusion and associated pleural parenchymal changes remain stable. 2. New right-sided peripherally inserted central catheter (PICC) line with tip in the superior vena cava (SVC). MTDD
--- NOTE | 2019-11-09 15:20 | REP ---
CHEST X-RAY: 2-VIEWS HISTORY: Pleural effusion. COMPARISON: 11/03/2019. FINDINGS: The previously placed pigtail drainage catheter is again seen in the left posterior pleural space unchanged in position. There is a small quantity of adjacent pleural air. Pleural thickening is somewhat decreased. There is plate- like atelectasis in the left mid lung zone. A right-sided PICC line is seen in place with its tip in the expected location of the superior vena cava. The right lung is clear. MTDD
--- NOTE | 2019-11-09 15:24 | REP ---
CHEST X-RAY CLINICAL: Evaluate pleural effusion. TECHNIQUE: PA and lateral. COMPARISON: 11/04/2019. FINDINGS: Left-sided pleural parenchymal changes including pleural effusion and associated presumed elements of atelectasis/consolidation remain unchanged. Pigtail pleural catheter identified in stable position. Visualized mediastinum and cardiac silhouette stable. Right hemithorax is relatively clear. Right PICC line with tip in the SVC again noted. Skeletal structures are intact. IMPRESSION: No significant change from prior examination. MTDD
--- NOTE | 2019-11-09 15:25 | REP ---
CHEST X-RAY CLINICAL: Follow up pleural effusion. TECHNIQUE: PA and lateral. COMPARISON: 11/05/2019. FINDINGS: Left-sided pigtail chest tube in stable position. Left-sided mid to lower lobe pleuroparenchymal changes including elements of atelectasis and pleural fluid/pleural thickening unchanged. Right hemithorax is clear. No new obvious acute process identified. Visualized portions of the mediastinum and cardiac silhouette are stable. Right PICC line within the SVC again noted. Skeletal structures intact. IMPRESSION: Left-sided pleuroparenchymal changes remain stable. MTDD
--- NOTE | 2019-11-09 15:28 | REP ---
CHEST X-RAY CLINICAL: Follow-up pleural effusion. TECHNIQUE: PA and lateral. COMPARISON: 11/06/2019. FINDINGS: The left-sided chest tube has been removed. [id number] left pleural effusion and associated elements of atelectasis/consolidation involving the left lower lobe remain essentially unchanged. No evidence for pneumothorax. The right hemithorax is clear. Visualized portions of the mediastinum and cardiac silhouette are stable. Right PICC line identified with tip in the SVC. Skeletal structures are intact. IMPRESSION: 1. Left chest tube removed. 2. Left lower lobe opacity suggesting effusion and infiltrate/atelectasis remain stable. MTDD
--- NOTE | 2019-11-17 10:23 | CR ---
DATE: 10/31/2019 REQUESTING PROVIDER: Hospitalist service after sending her to the Emergency Room from my office this morning. REASON FOR CONSULTATION: HISTORY OF PRESENT ILLNESS: There are no records available from reading the chart, so I am dictating from memory. The patient is a 64-year-old white female who was discharged from this hospital on 10/17/2019. She was admitted with a left lower lobe consolidation and pleural effusion which turned out to be consistent with an empyema. Her post chest tube CAT scan showed her to have a consolidated necrotic pneumonia. It is though that the pneumonia was an aspiration pneumonia which started after a gastric bypass surgery a number of months ago. Today she appeared in my office with fever, chills, sweats, and a cough which was however nonproductive. She had some chest pain in the lower lateral hemithorax on the left. She is stating she was weak. Her symptomatology started soon after her Moxifloxacin antibiotics that she was sent home on ran out. She was therefore sent to the Emergency Room and is being admitted to the Hospitalist service. PAST MEDICAL HISTORY: The patient's past medical history, to my memory, is significant for: Depression. COPD. Gastroesophageal reflux disease. PAST SURGICAL HISTORY: I cannot recall. SOCIAL HISTORY: Smoking history to be determined later. Exposure to be determined later. MEDICATIONS AT HOME: Aspirin 81 mg q. day. Calcium 500 mg q. day. Vitamin D-3 1,000 units q. day. Clonazepam 0.5 mg q. h.s. Vitamin B-12 500 mg q. day. Restasis 0.5 mg OU twice daily. Duloxetine 60 mg q. day. Iris 60 mg q. day p.r.n. for rhinitis. Fluconazole 150 mg x2 days. Gabapentin 100 mg p.o. twice daily. Hydroxyzine 25 mg q. h.s. Singulair 10 mg q. h.s. Multivitamins one q. day. Naproxen 250 mg p.o. p.r.n. for pain twice daily. Bystolic 2.5 mg q. day. Omeprazole 20 mg twice daily. Tramadol 50 mg p.o. p.r.n. for pain. REVIEW OF SYSTEMS: Constitutional: See HPI. Eyes: Without diplopia, without amaurosis fugax. Nose: Without epistaxis. Respiratory: See HPI. Cardiac: Without prior myocardial infarctions or intermittent claudication, without palpitations or tachycardias. GI: Without nausea, vomiting, diarrhea, constipation, melena or hematochezia, hematemesis or abdominal pain. GENITOURINARY: Without dysuria or hematuria. NEUROLOGICAL: Without paresthesias or paralyses or prior seizures. ENDOCRINE: Without diabetes or thyroid disease. LABORATORY DATA: Her electrolytes show a sodium of 138, potassium 3.5, chloride of 102 and a total CO2 of 25. Ionized calcium is 4.7 with a glucose of 94 and a BUN of 14 and a creatinine of 0.4. CBC today shows a white count of 16.6 with hemoglobin and hematocrit of 9.8 and 32.2. Platelet count of 616 with a differential that shows 74% neutrophils, 11% lymphocytes, 13% monocytes. There are no immature forms or toxic granulations. IMAGING DATA: Her chest x-ray shows an air fluid level on the left with almost a complete opacity in the left lower hemithorax. CT scan shows a large what looks to be like a pleural effusion compressing the lung with underlying consolidation. PHYSICAL EXAMINATION: VITAL SIGNS: Temperature is 98.6, pulse is 99 in a sinus rhythm, respiratory rate of 26 without the use of accessory muscles. She is 98% saturated on room air and her blood pressure is 107/56. HEENT: Eyes: Pupils are equal, round and reactive to light. The extraocular movements are intact. Sclerae area anicteric. Nose without deformity. Mouth shows the mucous membranes to be pink and moist. Lips without scabs or lesions. Her teeth are in good repair. NECK: Supple. There is no jugular venous distention, no subcutaneous emphysema. Trachea is midline. There is no thyromegaly or lymphadenopathy. LUNGS: Decreased breath sounds on the left side with a dull percussion at the left lower hemithorax. There is E to A egophony. Right lung shows normal fascicular sounds. Percussion is full to diaphragm on the right. CARDIAC: Without murmurs, clicks, gallops or rubs. I cannot feel the PMI. S1, S2 are normal. ABDOMEN: Soft and nontender. Bowel sounds are positive. There is no hepatomegaly, no CVA tenderness. EXTREMITIES: No pretibial edema, no calf tenderness, no differential swelling of the upper extremities. SKIN: Warm, dry and perfused without cyanosis or mottling. NEUROLOGICAL: CN II-XII intact. No gross deficits. Gait was not tested. PSYCH: Awake, alert. Great attention and appropriate interactive conversation. IMPRESSION: Recurrent pleural effusion, probably empyema. Left lower lobe pneumonia continuing. PLAN/DISCUSSION: I will have a pigtail catheter placed in her pleural effusion. Hopefully it will drain that and have her lung start to re-expand. Underneath her lung was a consolidated necrotizing pneumonia which is still probably continuing. She has multiple allergies to Penicillins and Sulfa. Therefore after obtaining blood cultures and sputum cultures, I would recommend that she be placed on a quinolone antibiotic. MTDD
--- NOTE | 2019-11-21 10:20 | RO ---
DATE OF OPERATION: November 03, 2019 PREOPERATIVE DIAGNOSIS: Loculated empyema. POSTOPERATIVE DIAGNOSIS: Loculated empyema. PROCEDURE: Tissue plasminogen activator pleural lysis. SURGEON: Ron Palacio MD APPLIED TECHNOLOGIST: ANESTHESIA: PROCEDURE IN DETAIL: The chest tube was disconnected from the Pleur-evac and clamped. Then, 6 mg of tPA in 50 cc of normal saline was then instilled in the chest. The patient was then rolled from side to side to distribute the tPA. The chest tube will be unclamped in four hours. The patient tolerated the procedure well. CHELSIE
--- NOTE | 2019-12-01 12:11 | IPN ---
DATE: 11/03/2019 Ms. Camarena is feeling better today. Is breathing better today. Her pain is well controlled at the chest tube insertion site. Her vital signs show a maximal temperature of 97.6 with a heart rate that ranged between 75-82 in normal sinus rhythm, respiratory rate that is constant at 16 without the use of accessory muscles, who is 96-100% saturated on room air. Blood pressure is ranging between 143/73 to 118/64. Her intake and output the past 24 hours has been recorded as 1200 in and 1658 out for a negativity of 450 mL. She has put 58 mL out of the chest tube. There is no air leak. Weight today is 63.8 kg compared to 64 kg yesterday. PHYSICAL EXAMINATION: Her lungs still show decreased breath sounds in the left lower hemithorax. Percussion is more full today than it has been in the past on the left side. She still has inspiratory crackles in the left lower hemothorax. Right lung shows normal fascicular sounds. Cardiac exam without murmurs, clicks, gallops, or rubs. I cannot feel her point of maximal impulse (PMI). S1 and S2 are normal. Abdomen is soft and nontender. Bowel sounds are positive. There is no hepatomegaly. No costovertebral angle (CVA) tenderness. Extremities show no pretibial edema, no calf tenderness. No differential swelling of the upper extremities. Skin is warm, dry, and perfused without cyanosis or mottling, including nail beds and knees. Neck is supple. There is no jugular venous distention. No subcutaneous emphysema. Trachea is midline. Mouth shows the mucous membranes to be pink and moist. Lips and tongue without lesions. No thrush. Eyes show her pupils to be equal and reactive to light. Extraocular movement intact. Sclerae anicteric. Neurologic shows II-XII intact. Normal gross motor, gross sensation intact. Gait is not tested. Psychiatric shows her to be awake, alert, oriented times three with appropriate mood and affect and conversational. Her white count today is 8.4, down from 9.6 yesterday, and 16.6 on admission. Hemoglobin and hematocrit are 9.7 and 31.9, respectively, with a platelet count of 514, down from 606 on admission. Differential shows 48% neutrophils, 28% lymphocytes, 7% monocytes, 6% eosinophils. Her electrolytes are essentially normal with a BUN and creatinine of 14 and 0.45. Glucose of 81 and calcium 8.3. Vancomycin trough today is 21.5, slightly outside the therapeutic window. Microbiology has grown Streptococcus constellatus, which is sensitive to everything except clindamycin and erythromycin and only intermediately sensitive to ceftriaxone, ampicillin, and penicillin. It is sensitive to Avelox, and she is already on Levaquin. Her chest x-ray today is essentially unchanged from yesterday, although there may be some clearing, but I suspect that it is secondary more to exposure. I cannot yet see the costophrenic angle or the diaphragmatic border. I suspect she still has significant consolidation. The chest tube catheter looks to be in good place posteriorly. IMPRESSION: 1. Prior aspiration necrotizing pneumonia from prior gastric bypass. 2. Alveolar pleural fistula, resolved. 3. Empyema, recurrent, resolving. 4. Depression, treated. 5. Hypertension. PLAN AND DISCUSSION: Since we now have a positive culture from the pleural fluid, and looks as though it is very sensitive to quinolones, I would discontinue her vancomycin. I will do a tpA pleurolysis, as her CT scan yesterday showed some retained fluid in the empyema space. I expect she will be in the hospital in the next few days and complete drainage. CHELSIE
--- NOTE | 2019-12-01 12:15 | IPN ---
DATE: 11/01/2019 Ms. Camarena is feeling much better and breathing much better. She has not had a recurrence of fever. Approximately 300 mL was drained from her chest yesterday with a pigtail catheter. She has put out an additional 100 mL overnight. Her vital signs show a maximum temperature of 97.7 with a heart rate that ranges between 70-91 in sinus rhythm, respiratory rate of 17-20 without the use of accessory muscles, who is 98%-97% saturated on 3 liters nasal cannula, and her blood pressure is ranging between 146/73 to 108/56. Her intake and output for the past 24 hours has been recorded as 300 in and 648 out, for a negativity of 350 mL. She has 98 mL from the chest tube with no air leak. Her weight is 61.3 kg today,. On physical examination, her lungs show a dull percussion note in the left lower hemithorax with decreased breath sounds along with coarse rales and rhonchi with still some E-to-A egophony. Her left side shows mild inspiratory rales, which clear with coughing. Percussion is full from the diaphragm on the right. Cardiac exam is without murmurs, clicks, gallops, or rubs. I cannot feel the point of maximal impulse (PMI). S1, S2 are normal. Abdomen is soft and nontender. Bowel sounds are positive. There is no hepatomegaly. No costovertebral angle (CVA) tenderness. Extremities show no pretibial edema, no calf tenderness. No differential swelling in the upper extremities. Skin is warm, dry, and perfused without cyanosis or mottling. Neck is supple. There is no jugular venous distention. No subcutaneous emphysema. Trachea is midline. Mouth shows her mucous membranes to be pink and moist. Lips, gums, tongue moist. Eyes show her pupils to be equal and reactive. Extraocular movements intact. Sclerae nonicteric. Neurologic shows II-XII intact, normal gross motor, sensation intact gait is not tested. Psychiatric shows her to be awake, alert, oriented times three with an appropriate mood and affect. Her white count today is 12.8, down from 16.6 on admission yesterday. Hemoglobin and hematocrit are 9.7 and 30.7, respectively. Her platelet count is 569. Her chemistries show sodium 141 with potassium 3.4. BUN and creatinine are 20 and 0.55 with a glucose of 155 and a calcium 8.5. Her pleural fluid analysis has been noted as unable to be performed for all the chemistries and cell counts. Bacteriology, however, shows a gram-positive cocci in chains along with moderate gram-negative rods and moderate gram-positive rods and white cell. Cultures are still pending. Her blood cultures are negative after 24 hours. Her chest x-ray shows improvement in her air-fluid level with the air-fluid level now being gone. Usual air-fluid level after placement of the catheter. She still has a dense opacity in the left lower hemithorax. It was consistent with a consolidation from her left lower lobe pneumonia. IMPRESSION: 1. Prior left lower lobe aspiration pneumonia, necrotizing. 2. Recurrent pleural effusion, most likely an empyema. 3. Prior alveolar pleural fistula, seemingly resolved without an air leak today. 4. Status post gastric bypass surgery. 5. Prior tobacco abuse. 6. Depression, treated. 7. Chronic pain syndrome. 8. Hypertension. PLAN AND DISCUSSION: We will continue her chest tube as is. She is now on levofloxacin and vancomycin. She is also on Flagyl. An MRI of her abdomen was ordered because of a finding of dilated bile duct on the abdominal portion f the CT scan. She is status post a gastric bypass and it is not at all uncommon for bile duct to be dilated after gastric bypass surgery. The mechanism is unknown, but it is well documented in the literature. By ordering an MRI, we are following a phantom down a rabbit hole, and therefore I have canceled the MRI of the abdomen. She has an empyema with prior necrotizing pneumonia, most likely aspiration from her gastric bypass surgery. I will most likely obtain a CT of her tomorrow to see how badly the lung is entrapped. We may need to do get another tPA pleurolysis. [facility]
--- NOTE | 2019-12-01 12:33 | REP ---
CHEST X-RAY: 2-VIEWS COMPARISON: Chest x-ray from 08:06 a.m. on this date. HISTORY: Empyema. Status post pleural drainage catheter placement. FINDINGS: PA and lateral views of the chest demonstrate a percutaneously placed pigtail catheter in the left posterolateral pleural space. The amount of fluid in the pleural-based cavity is decreased. An air fluid level is again seen. There is persistent pleural thickening both visceral and parietal. IMPRESSION: Improved empyema cavity post-drainage. MTDD
--- NOTE | 2019-12-01 12:54 | REP ---
CHEST X-RAY: 2-VIEWS HISTORY: Follow up effusion. TECHNIQUE: PA and lateral. COMPARISON 10/31/19 FINDINGS: A pigtail catheter in the left posterior pleural space is noted and the moderate left pleural effusion has decreased from prior examination. Underlying left mid to lower lobe atelectasis is suggested. No pneumothorax. The right hemithorax is clear. The visualized portions of the mediastinum and cardiac silhouette are normal/stable. Skeletal structures are intact. IMPRESSION: 1. Status post chest tube with decreased left pleural effusion. 2. Left lower lobe atelectasis. MTDD
== END 2019-11-07 14:15 | disposition home or self-care (01) | DRG 178 ==
LOC: M ED 09:27 → M ED INP 12:25 → M PCU 14:30
PROVIDERS: ADMIT Thoracic Surgery (Cardiothoracic Vascular Surgery); ATTEND Internal Medicine
PROC: 0W9B3ZZ Drainage of Left Pleural Cavity, Percutaneous Approach (ICD-10-PCS; 2019-10-31)
PROC: 02HV33Z Insertion of Infusion Device into Superior Vena Cava, Percutaneous Approach (ICD-10-PCS; principal; 2019-11-02 13:30)
DX: J86.9 Pyothorax without fistula (principal); J90 Pleural effusion, not elsewhere classified; I10 Essential (primary) hypertension; K21.9 Gastro-esophageal reflux disease without esophagitis; F32.9 Major depressive disorder, single episode, unspecified; G25.81 Restless legs syndrome; Z79.82 Long term (current) use of aspirin; Z79.899 Other long term (current) drug therapy; Z88.0 Allergy status to penicillin; Z88.5 Allergy status to narcotic agent; Z88.8 Allergy status to other drugs, medicaments and biological substances; J44.9 Chronic obstructive pulmonary disease, unspecified

== ENCOUNTER → 2019-10-31 | Outpatient (CLI) | payer MEDICARE, OTHER ==
[~2019-10-31] MED LIST changes: +ALLE60TA69 PO; +ASPI81CH33 PO; +CALC500T68 PO; +CLON1TAB8 PO; +CVS5000S2 PO; +D31000TA2 PO; +DULO30CA47 PO; +FLUC150T PO; -KETOROLAC 30 MG/ML 1ML VIAL ONE; +LEVA750T7 PO; -LIDOCAINE 1% MDV 20ML VIAL ONE; +METR-265 PO; -MIDAZOLAM INJ 2MG/2ML VIAL (J2250 PER 1MG) ONE; +PERCOCET PO; +REST0.05 OD; +REST0.05 OU; +ROPI1TAB3 PO; +VITA-172 PO; +VITMTA PO; -buPROPion 100 MG TAB ONE
--- NOTE | 2019-12-01 12:24 | REP ---
CHEST X-RAY: TWO VIEWS HISTORY: Pyothorax without fistula. COMPARISON: Chest x-ray 10/17/2019. FINDINGS: There is a pleural-based cavity containing an air fluid level in the left upper hemithorax. Pleural opacity is seen throughout the lower hemithorax consistent with some effusion. There is compressive atelectasis in the left lung. Both the air fluid level and the pleural opacity at the base have increased since the 10/17/2019 study. The right lung remains clear. IMPRESSION: Increasing left effusion. Pleural-based cavitary lesion with air fluid level in the left upper lung zone. MTDD
== END ==
LOC: M LAB 07:44
PROVIDERS: ATTEND Thoracic Surgery (Cardiothoracic Vascular Surgery)
DX: J86.9 Pyothorax without fistula (principal)

== ENCOUNTER → 2019-11-17 | Outpatient (CLI) | payer MEDICARE, OTHER ==
[~2019-11-17] MED LIST changes: +ALLE60TA69 PO; +ASPI81CH33 PO; +CALC500T68 PO; +CLON1TAB8 PO; +CVS5000S2 PO; +D31000TA2 PO; +DULO30CA47 PO; +FLUC150T PO; +LEVA750T7 PO; +METR-265 PO; +PERCOCET PO; +REST0.05 OD; +REST0.05 OU; +ROPI1TAB3 PO; +VITA-172 PO; +VITMTA PO
--- NOTE | 2019-12-02 12:43 | REP ---
CHEST X-RAY DATE: 11/17/2019 CLINICAL: Followup lobar pneumonia and pleural effusion. TECHNIQUE: PA and lateral. COMPARISON: 11/07/2019. FINDINGS: The right hemithorax is clear and the mediastinum and cardiac silhouette are relatively stable and within normal limits. The left hemothorax demonstrates a moderate pleural effusion with pleural thickening which may be slightly improved as compared to prior examination. Underlying air space disease is suggested. There is a small air-fluid level noted at the periphery of the left mid lung zone identified on PA view, which may represent trapped pleural fluid; although, an air fluid-level in pneumatocele could not be excluded as well. Findings are overall improved as compared to 11/07/2019. No obvious pneumothorax. Skeletal structures are intact. IMPRESSION: Findings involving the left hemithorax as described above, including moderate decreased pleural fluid and underlying parenchymal opacities, as well as subtle air-fluid level. Findings are overall improved as compared to 11/07/2019. MTDD
== END ==
LOC: M RAD 08:04
PROVIDERS: ATTEND Thoracic Surgery (Cardiothoracic Vascular Surgery)
DX: J18.1 Lobar pneumonia, unspecified organism (principal); J86.9 Pyothorax without fistula; J90 Pleural effusion, not elsewhere classified

== ENCOUNTER → 2019-11-30 | Outpatient (CLI) | payer MEDICARE, OTHER ==
--- NOTE | 2019-12-02 12:46 | REP ---
TWO-VIEW CHEST HISTORY: Lobar pneumonia. COMPARISON: 11/17/2019, as well as other prior exams. TECHNIQUE: Two views of the chest are performed. FINDINGS: There is residual pleural and parenchymal opacity in the left lung base, which continues to improve compared to the prior exams. The previously noted air fluid level projecting over the left lung base is not seen on todays exam. The right lung remains clear. Heart is normal in size. Mediastinal silhouette is unchanged. There are degenerative changes of the spine. IMPRESSION: Residual pleural and parenchymal opacity in the left lung base continues to improve as discussed above. MTDD
== END ==
LOC: M RAD 09:36
PROVIDERS: ATTEND Thoracic Surgery (Cardiothoracic Vascular Surgery)
DX: J18.1 Lobar pneumonia, unspecified organism (principal); J86.9 Pyothorax without fistula

== ENCOUNTER → 2019-12-01 | Outpatient (CLI) | payer MEDICARE, OTHER ==
--- NOTE | 2019-12-08 10:15 | REP ---
CHEST FLUOROSCOPY SNIFF TEST HISTORY: Pleural effusion, pneumonia. TECHNIQUE: Real-time fluoroscopic imaging of the chest is performed with spot radiographs also obtained. FINDINGS: Pleural and parenchymal opacity is again seen in the left lung base. With deep inspiration and expiration, the right hemidiaphragm demonstrates appropriate motion and excursion. There is excellent depression with inspiration and elevation with expiration. However, the left hemidiaphragm demonstrates severely diminished movement and excursion with inspiration and expiration. It does move in an appropriate direction with no evidence of paradoxical motion. IMPRESSION: Severely compromised left diaphragmatic motion with inspiration and expiration as discussed above. FLUOROSCOPY TIME: 0.2 minutes. MTDD
== END ==
LOC: M RADPRO 11:15
PROVIDERS: ATTEND Internal Medicine Pulmonary Disease
DX: J90 Pleural effusion, not elsewhere classified (principal)

== ENCOUNTER → 2019-12-01 | Outpatient (CLI) | payer MEDICARE, OTHER ==
[2019-12-01 13:23] LABS: HEMATOCRIT 42.2 % (36.0-47.0); MEAN CORPUSCULAR HEMOGLOBIN 27.9 pg (27.0-33.0); MEAN CORPUSCULAR HGB CONC 30.8 g/dl (32.0-36.5); MEAN CORPUSCULAR VOLUME 90.6 fl (80.0-96.0); PLATELET COUNT, AUTOMATED 313 10^3/uL (150-450); RED BLOOD COUNT 4.66 10^6/uL (4.00-5.40); WHITE BLOOD COUNT 9.3 10^3/uL (4.0-10.0)
[2019-12-01 13:48] LABS: ALBUMIN 3.3 GM/DL (3.2-5.2); ALT/SGPT 21 U/L (12-78); BILIRUBIN,TOTAL 0.3 MG/DL (0.2-1.0); BLOOD UREA NITROGEN 18 MG/DL (7-18); CALCIUM LEVEL 9.4 MG/DL (8.8-10.2); CARBON DIOXIDE LEVEL 30 MEQ/L (21-32); CHLORIDE LEVEL 103 MEQ/L (98-107); CHOLESTEROL LEVEL 192 MG/DL (<200); CREATININE FOR GFR 0.56 MG/DL (0.55-1.30); FERRITIN 57 NG/ML (8-252); GLOMERULAR FILTRATION RATE > 60.0 (>45); GLUCOSE, FASTING 86 MG/DL (70-100); HDL CHOLESTEROL 75 MG/DL (>40); IRON (FE) 40 UG/DL (50-170); LDL CHOLESTEROL 96 MG/DL (<100); NON-HDL-C 117 MG/DL; PERCENT SATURATION 11.8 % (13.2-45.0); POTASSIUM SERUM 4.6 MEQ/L (3.5-5.1); SODIUM LEVEL 138 MEQ/L (136-145); TOTAL IRON BINDING CAPACITY 339 UG/DL (250-450); TOTAL PROTEIN 7.5 GM/DL (6.4-8.2); TRIGLYCERIDES LEVEL 106 MG/DL (<150)
[2019-12-01 13:55] LABS: TOTAL 25(OH) VITAMIN D 62.5 NG/ML (30.0-100.0)
[2019-12-01 15:07] LABS: VITAMIN B12 LEVEL 1096 PG/ML (247-911)
== END ==
LOC: M WUC 11:56
PROVIDERS: ATTEND Surgery
DX: K91.2 Postsurgical malabsorption, not elsewhere classified (principal)

== ENCOUNTER → 2019-12-20 | Outpatient (CLI) | payer MEDICARE, OTHER ==
--- NOTE | 2019-12-23 13:36 | REP ---
COOKIE SWALLOW This procedure was performed by CHARIS Beauchamp, under the direct supervision of Dr. Tolbert. The procedure was performed with Lashaun Thurston from speech pathology present. 5 mL aliquots of thin, pudding, mixed fruit, soft food, hard food, and pill consistency barium was administered. Flash penetration was visualized with both thin consistency barium and mixed fruit consistency barium. The detailed report of this examination will be provided by speech pathology. 2.2 minutes of fluoroscopy time was utilized for this procedure. CHELSIE
== END ==
LOC: M ST 07:57
PROVIDERS: ATTEND Registered Nurse
DX: K21.9 Gastro-esophageal reflux disease without esophagitis (principal)

== ENCOUNTER → 2020-03-19 | Outpatient (CLI) | payer MEDICARE, OTHER ==
[2020-03-19 15:38] LABS: BLOOD UREA NITROGEN 24 MG/DL (7-18); CREATININE FOR GFR 0.64 MG/DL (0.55-1.30); GLOMERULAR FILTRATION RATE > 60.0 (>45)
== END ==
LOC: M WUC 11:34
PROVIDERS: ATTEND Internal Medicine Pulmonary Disease
DX: Z01.812 Encounter for preprocedural laboratory examination (principal)

== ENCOUNTER → 2020-03-23 | Outpatient (CLI) | payer MEDICARE, OTHER ==
[~2020-03-23] MED LIST changes: +GASTROGRAFIN SOLUTION 30ML (Q9963) As Ordered ONE; +ISOVUE-370 76% 100ML VIAL As Ordered ONE
--- NOTE | 2020-03-23 16:40 | REP ---
INDICATION: PNEUMONIA. COMPARISON: Multiple the latest 11/02/2019 TECHNIQUE: Noncontrast enhanced exam FINDINGS: There is no mediastinal or hilar adenopathy. There are no pleural or pericardial effusions. The left-sided thoracotomy tube has been removed. There is no significant change in appearance of the osseous structures. Evaluation of the lung marte shows minimal curvilinear densities in the left lung base and inferior lingula. This represents a marked and significant improvement compared to the prior exam. IMPRESSION: Significant left lung improvement as described above. The residual likely represents chronic subsegmental atelectatic change or fibrotic scarring. <Electronically signed by Delmar Chavira > 03/23/20 [id number]
--- NOTE | 2020-03-23 16:50 | REP ---
INDICATION: PNEUMONIA. COMPARISON: CT chest 11/02/2019 in 10/31/2019 TECHNIQUE: Oral contrast was administered. CT abdomen performed without IV contrast. CT abdomen and pelvis performed with the intravenous administration of 100 cc of Isovue 370. Sagittal and coronal reconstruction images are performed. FINDINGS: Lung bases: There is mild fibrotic change left lung base. There is a moderate hiatal hernia. Liver: Normal Gallbladder: There has been a prior cholecystectomy. Dilated intrahepatic and extrahepatic bile ducts are stable. Spleen: Normal. Adrenals: Normal. Pancreas: There is no evidence of pancreatic mass. There is stable dilatation of the pancreatic duct in the region of the pancreatic head. Kidneys: Normal. Small and large bowel: There is diffuse colonic diverticulosis. There is a duodenal diverticulum. There is no bowel wall thickening or colitis. There is no free air. Free fluid: None. Abdominal aorta: No aneurysm or dissection. Adenopathy: None. Appendix: There has been a prior appendectomy. Osseous structures: There is metallic fixation at the right lumbosacral junction. There are degenerative changes of the spine without compression deformity. Pelvis: No mass. There has been a prior hysterectomy. IMPRESSION: Stable chronic findings as discussed in detail above. No acute abnormalities. <Electronically signed by Raj Canales > 03/23/20 [id number]
== END ==
LOC: M RAD 14:29
PROVIDERS: ATTEND Internal Medicine Pulmonary Disease
DX: J18.1 Lobar pneumonia, unspecified organism (principal)
CPT/HCPCS: 71250; 74178; Q9963; Q9967